=== PATIENT | male | born 1950 | race Caucasian/White ===

== ENCOUNTER 2024-01-25 13:00 | Inpatient (IN) | payer MEDICARE, OTHER, SELFPAY ==
[2024-01-25] VITALS (10 sets, daily range): BP systolic 126–172; BP diastolic 79–100; BMI 28.1
--- NOTE | 2024-01-25 10:56 | ED.GENMED ---
History of Present Illness
<Sailaja Guido PA-C - Last Filed: 01/25/24 15:11>
General
Chief Complaint: Alcohol Problem
Source: patient
Time Seen by Provider: 01/25/24 10:45
History of Present Illness
History of Present Illness:
73yoM with a history of alcoholism presenting via EMS for evaluation of hematemesis. Patient recently was released from a [facility] house in [place] about a month ago. He has been homeless since then and has been staying in hotels up until last
night. He started drinking again a few weeks ago. He states he has not been drinking as much the past few days because he has not been feeling well. He estimates that he drank 4 shots of vodka yesterday. He started having intermittent vomiting about
3 days ago. He noticed bright red blood mixed in with his vomit this morning and EMS was called. He denies any history of cirrhosis. No reported hematochezia or melena.
Past History
<Sailaja Guido PA-C - Last Filed: 01/25/24 15:11>
Past History
ED Past Medical History: Other (Foot drop, hernia in his lower abdomen, Fx Leg) and Other (Alcohol abuse)
ED Past Surgical History: Orthopedic (Right lower extremity orthopedic surgical procedure)
Social History
Tobacco: Smoker
Alcohol: Chronic alcoholic (Molt liquir and Vodka, As much as he can get)
Personal:
Living: homeless
Employment: Not employed
Family History
Family History: Other (Noncontributory)
Phy Exam
<Sailaja Guido PA-C - Last Filed: 01/25/24 15:11>
General Physical Exam
General Presentation: no apparent distress
General Skin: warm and dry
General Habitus: normal
General Mental: alert
Cardiovascular Exam
Cardiovascular Exam: tachycardia
Pulmonary Exam
Pulmonary Exam: lungs clear, no respiratory distress, no crackles and no wheezing
Gastrointestinal Exam
Gastrointestinal Exam: non tender, soft and non distended
Arnol Coma Scale
Eye Opening: Spontaneous
Verbal Response: Oriented
Motor Response: Obeys Commands
GCS Total Score: 15
Skin Exam
Skin Exam: normal color and warm/dry
Psychiatric Exam
Psychiatric Exam: normal mood/affect
Scores
<Sailaja Guido PA-C - Last Filed: 01/25/24 15:11>
Withdrawal Assessment of Alcohol
Withdrawal Assessment Completed?: Not applicable
Course
<Sailaja Guido PA-C - Last Filed: 01/25/24 15:11>
Orders/Labs/Results
Orders:
Orders
01/25/24 Breakfast
NPO
Allow oral meds: Yes
Allow clear liquids: No
01/25/24 10:55
Electrocardiogram (*1) Urgent
Reason for Study: Tachycardia
EKG- Treatment ONCE
01/25/24 10:59
Type+Screen Urgent
Alcohol Urgent
Complete Blood Count/With Diff Urgent
Comprehensive Metabolic Panel Urgent
Lipase Urgent
PTT Urgent
Prothrombin Time Urgent
Troponin I Urgent
01/25/24 11:08
0.9% Sodium Chloride 1000 ml [Nss] 1,000 ml IV BOLUS
01/25/24 11:14
ABO2 Routine
BBK Wristband Number:
Associate notified that ABO2 has been ordered: [id number]
Date: 01/25/24
Time: 11:07
Unloader Operator ID: [id number]
01/25/24 11:30
Pantoprazole [Protonix IV] 40 mg IV NOW STA
01/25/24 12:39
Urinalysis Reflex To Culture Routine
Date Specimen was Collected: 01/25/24
Time Specimen was Collected: 12:47
CR Chest - 2 Views Stat
Comment:
Reason For Exam: sob,cough
01/25/24 12:40
Admit/Transfer Patient As Directed
Co-Sign Provider:
Level of Care: Inpatient admission
Assign to:: IMU- Intermediate Care
Physician / Group: amirah
Diagnosis: hematemesis
Reason for Hospitalization: hematemesis
Expected length of stay greater than two midnights?: Yes
ELOS- Estimated Length of Stay in days: 3
I certify the patient meets the requirements for IP care: Yes
PRN Pain Medication Management As Directed
May give lesser potent ordered pain med per pt: Yes
preference::
Protocol:: Medication orders for pain may be administered in a
manner that supports deferring to patient preference
when the pt is:
- Requesting an ordered lesser potent pain medication.
Least to most potent pain medications are defined
as: acetaminophen < NSAID < tramadol < opioids
(morphine, oxycodone, hydromorphone).
- Requesting a lesser dose of the same medication IF
ORDERED.
- Requesting a less intrusive route of administration
if both routes are prescribed by the provider (PO <
IV).
01/25/24 12:42
Code Status As Directed
Resuscitation Status: Full Code
01/25/24 12:59
COVID-19 Antigen Stat
Source: Nasal Swab
Depakane Stat
01/25/24 13:00
Lactated Ringers [Lr] 1,000 ml IV 100 mls/hr
01/25/24 13:11
Octreotide Acetate [Sandostatin] 600 mcg 0.9% Sodium Chloride 500 ml [Nss] 500 ml IV Q12H
Pantoprazole 80 mg/100 ml Nss [Protonix] 80 mg in 100 ml IV Q10H
01/25/24 14:21
0.9% Sodium Chloride [Nss (Preservative Free)] See Protocol IV PRN PRN
FOLic ACID [Folvite] 1 mg 0.9% Sodium Chloride 50 ml [Nss] 50 ml IV DAILYPRN
Lorazepam [Ativan] 1 mg IV Q1HPRN PRN
Lorazepam [Ativan] 1 mg PO Q2HPRN PRN
Lorazepam [Ativan] 2 mg IV Q1HPRN PRN
01/25/24 14:21
Case Management Consult Once
Case Management Consult: Other
Comment: Substance abuse counseling
DIETARY CONSULT Routine
Reason for Consult: Nutrition support, possible refeeding guidelines
GASTROINTESTINAL CONSULT Routine
Consulting Provider: Jose Trujillo
Was physician already notified: Yes
B-Hydroxybutyrate Urgent
GGTP Urgent
Magnesium Urgent
Phosphorus Urgent
Urine Drug Abuse Screen Routine
Activity As Directed
Activity Level: As Tolerated
INT (Intravenous Needle Therapy) As Directed
Comment: Place 2 IV catheters of the largest bore possible until stable
MSAS SCORE As Directed
MSAS Score 0-4: Repeat MSAS every 2 hours until 0-4 for three consecutive assessments, then every 4 hours x 48
hours.
MSAS Score 5-7: For MILD withdrawl symptoms. Repeat MSAS and RASS every 2 hours
MSAS Score 8-11: For MODERATE withdrawal symptoms. Repeat MSAS and RASS every 1 hour. Consider ICU or IMU
level of care.
MSAS Score > 11: For SEVERE withdrawal symptoms. Repeat MSAS and RASS every 1 hour. Notify provider, consider
ICU level of care.
MSAS Additional Instructions: If no improvement or no decrease in score from severe to moderate within 12
hours, consult psychiatry
MSAS Notify Provider: Notify provider if patient requires more than 10 mg of Lorazepam in eight hour period.
Orthostatic Vital Signs As Directed
Orthostatic VS Frequency: Now
Comment: then every four hours for twenty-four hours
Quantify Hemopytsis As Directed
Venous Foot Pumps As Directed
Location: Bilateral feet
Vital Signs As Directed
Frequency: Per unit guidelines
DX Deep Vein Thrombosis Video Routine
01/25/24 20:00
Thiamine Injection 200 mg IV Q12
01/26/24 01:00
H&H Q8H
01/26/24 06:00
Basic Metabolic Panel IN AM
Complete Blood Count/No Diff IN AM
01/26/24 08:00
Amitriptyline [Elavil] 25 mg PO DAILY
Divalproex Extended Rel. 24 Hr [Depakote ER (24 Hr Release)] 1,000 mg PO DAILY
FOLic ACID [Folvite] 1 mg PO DAILY
01/26/24 09:00
H&H Q8H
01/27/24 06:00
Basic Metabolic Panel IN AM
Complete Blood Count/No Diff IN AM
01/28/24 06:00
Basic Metabolic Panel IN AM
Complete Blood Count/No Diff IN AM
01/28/24 20:00
Thiamine HCl [Vitamin B1] 100 mg PO BID
01/29/24 06:00
Basic Metabolic Panel IN AM
Complete Blood Count/No Diff IN AM
01/30/24 06:00
Complete Blood Count/No Diff IN AM
Abnormal Lab Results
01/25/24 01/25/24
10:59 12:59
WBC 12.5 H 10^3/uL
(4.8-10.8)
MCH 31.8 H pg
(27.0-31.0)
Abs Immat Gran (auto) 0.1 H 10^3/uL
(0-0.05)
Absolute Neuts (auto) 11.3 H 10^3/uL
(1.4-6.5)
Absolute Lymphs (auto) 0.5 L 10^3/uL
(1.2-3.4)
Immature Gran % 0.6 H %
(0-0.5)
Neutrophils % 90.8 H %
(42.2-75.2)
Lymphocytes % 4.2 L %
(20.5-51.1)
Chloride 92 L mmol/L
(98-107)
BUN 25 H mg/dl
(9-20)
Glucose 151 H mg/dl
(70-99)
Calcium 11.4 H mg/dl
(8.4-10.2)
Total Bilirubin 2.1 H mg/dl
(0.2-1.3)
Valproic Acid 14.8 L ug/ml
(50.0-120.0)
01/25/24 10:59
01/25/24 10:59
Vital Signs
Initial and Last Documented VS:
Initial Vital Signs
Temp Pulse Resp BP Pulse Ox
98 F 117 18 139/100 98
01/25/24 10:44 01/25/24 10:44 01/25/24 10:44 01/25/24 10:44 01/25/24 10:44
Last Documented Vital Signs
Temp Pulse Resp BP Pulse Ox
98 F 114 14 156/93 99
01/25/24 10:44 01/25/24 13:45 01/25/24 13:45 01/25/24 13:00 01/25/24 13:45
<Shashi Massey, DO - Last Filed: 01/25/24 11:24>
Orders/Labs/Results
Orders:
Orders
01/25/24 Breakfast
NPO
Allow oral meds: Yes
Allow clear liquids: No
01/25/24 10:55
Electrocardiogram (*1) Urgent
Reason for Study: Tachycardia
EKG- Treatment ONCE
01/25/24 10:59
Type+Screen Urgent
Alcohol Urgent
Complete Blood Count/With Diff Urgent
Comprehensive Metabolic Panel Urgent
Lipase Urgent
PTT Urgent
Prothrombin Time Urgent
Troponin I Urgent
01/25/24 11:08
0.9% Sodium Chloride 1000 ml [Nss] 1,000 ml IV BOLUS
01/25/24 11:14
ABO2 Routine
BBK Wristband Number:
Associate notified that ABO2 has been ordered: [id number]
Date: 01/25/24
Time: 11:07
Unloader Operator ID: [id number]
01/25/24 11:30
Pantoprazole [Protonix IV] 40 mg IV NOW STA
01/25/24 12:39
Urinalysis Reflex To Culture Routine
Date Specimen was Collected: 01/25/24
Time Specimen was Collected: 12:47
CR Chest - 2 Views Stat
Comment:
Reason For Exam: sob,cough
01/25/24 12:40
Admit/Transfer Patient As Directed
Co-Sign Provider:
Level of Care: Inpatient admission
Assign to:: IMU- Intermediate Care
Physician / Group: amirah
Diagnosis: hematemesis
Reason for Hospitalization: hematemesis
Expected length of stay greater than two midnights?: Yes
ELOS- Estimated Length of Stay in days: 3
I certify the patient meets the requirements for IP care: Yes
PRN Pain Medication Management As Directed
May give lesser potent ordered pain med per pt: Yes
preference::
Protocol:: Medication orders for pain may be administered in a
manner that supports deferring to patient preference
when the pt is:
- Requesting an ordered lesser potent pain medication.
Least to most potent pain medications are defined
as: acetaminophen < NSAID < tramadol < opioids
(morphine, oxycodone, hydromorphone).
- Requesting a lesser dose of the same medication IF
ORDERED.
- Requesting a less intrusive route of administration
if both routes are prescribed by the provider (PO <
IV).
01/25/24 12:42
Code Status As Directed
Resuscitation Status: Full Code
01/25/24 12:59
COVID-19 Antigen Stat
Source: Nasal Swab
Depakane Stat
01/25/24 13:00
Lactated Ringers [Lr] 1,000 ml IV 100 mls/hr
01/25/24 13:11
Octreotide Acetate [Sandostatin] 600 mcg 0.9% Sodium Chloride 500 ml [Nss] 500 ml IV Q12H
Pantoprazole 80 mg/100 ml Nss [Protonix] 80 mg in 100 ml IV Q10H
01/25/24 14:21
0.9% Sodium Chloride [Nss (Preservative Free)] See Protocol IV PRN PRN
FOLic ACID [Folvite] 1 mg 0.9% Sodium Chloride 50 ml [Nss] 50 ml IV DAILYPRN
Lorazepam [Ativan] 1 mg IV Q1HPRN PRN
Lorazepam [Ativan] 1 mg PO Q2HPRN PRN
Lorazepam [Ativan] 2 mg IV Q1HPRN PRN
01/25/24 14:21
Case Management Consult Once
Case Management Consult: Other
Comment: Substance abuse counseling
DIETARY CONSULT Routine
Reason for Consult: Nutrition support, possible refeeding guidelines
GASTROINTESTINAL CONSULT Routine
Consulting Provider: Jose Trujillo
Was physician already notified: Yes
B-Hydroxybutyrate Urgent
GGTP Urgent
Magnesium Urgent
Phosphorus Urgent
Urine Drug Abuse Screen Routine
Activity As Directed
Activity Level: As Tolerated
INT (Intravenous Needle Therapy) As Directed
Comment: Place 2 IV catheters of the largest bore possible until stable
MSAS SCORE As Directed
MSAS Score 0-4: Repeat MSAS every 2 hours until 0-4 for three consecutive assessments, then every 4 hours x 48
hours.
MSAS Score 5-7: For MILD withdrawl symptoms. Repeat MSAS and RASS every 2 hours
MSAS Score 8-11: For MODERATE withdrawal symptoms. Repeat MSAS and RASS every 1 hour. Consider ICU or IMU
level of care.
MSAS Score > 11: For SEVERE withdrawal symptoms. Repeat MSAS and RASS every 1 hour. Notify provider, consider
ICU level of care.
MSAS Additional Instructions: If no improvement or no decrease in score from severe to moderate within 12
hours, consult psychiatry
MSAS Notify Provider: Notify provider if patient requires more than 10 mg of Lorazepam in eight hour period.
Orthostatic Vital Signs As Directed
Orthostatic VS Frequency: Now
Comment: then every four hours for twenty-four hours
Quantify Hemopytsis As Directed
Venous Foot Pumps As Directed
Location: Bilateral feet
Vital Signs As Directed
Frequency: Per unit guidelines
DX Deep Vein Thrombosis Video Routine
01/25/24 20:00
Thiamine Injection 200 mg IV Q12
01/26/24 01:00
H&H Q8H
01/26/24 06:00
Basic Metabolic Panel IN AM
Complete Blood Count/No Diff IN AM
01/26/24 08:00
Amitriptyline [Elavil] 25 mg PO DAILY
Divalproex Extended Rel. 24 Hr [Depakote ER (24 Hr Release)] 1,000 mg PO DAILY
FOLic ACID [Folvite] 1 mg PO DAILY
01/26/24 09:00
H&H Q8H
01/27/24 06:00
Basic Metabolic Panel IN AM
Complete Blood Count/No Diff IN AM
01/28/24 06:00
Basic Metabolic Panel IN AM
Complete Blood Count/No Diff IN AM
01/28/24 20:00
Thiamine HCl [Vitamin B1] 100 mg PO BID
01/29/24 06:00
Basic Metabolic Panel IN AM
Complete Blood Count/No Diff IN AM
01/30/24 06:00
Complete Blood Count/No Diff IN AM
Abnormal Lab Results
01/25/24 01/25/24
10:59 12:59
WBC 12.5 H 10^3/uL
(4.8-10.8)
MCH 31.8 H pg
(27.0-31.0)
Abs Immat Gran (auto) 0.1 H 10^3/uL
(0-0.05)
Absolute Neuts (auto) 11.3 H 10^3/uL
(1.4-6.5)
Absolute Lymphs (auto) 0.5 L 10^3/uL
(1.2-3.4)
Immature Gran % 0.6 H %
(0-0.5)
Neutrophils % 90.8 H %
(42.2-75.2)
Lymphocytes % 4.2 L %
(20.5-51.1)
Chloride 92 L mmol/L
(98-107)
BUN 25 H mg/dl
(9-20)
Glucose 151 H mg/dl
(70-99)
Calcium 11.4 H mg/dl
(8.4-10.2)
Total Bilirubin 2.1 H mg/dl
(0.2-1.3)
Valproic Acid 14.8 L ug/ml
(50.0-120.0)
01/25/24 10:59
01/25/24 10:59
Vital Signs
Initial and Last Documented VS:
Initial Vital Signs
Temp Pulse Resp BP Pulse Ox
98 F 117 18 139/100 98
01/25/24 10:44 01/25/24 10:44 01/25/24 10:44 01/25/24 10:44 01/25/24 10:44
Last Documented Vital Signs
Temp Pulse Resp BP Pulse Ox
98 F 114 14 156/93 99
01/25/24 10:44 01/25/24 13:45 01/25/24 13:45 01/25/24 13:00 01/25/24 13:45
<Sailaja Guido PA-C - Last Filed: 01/25/24 15:11>
MDM/Problems Addressed
Differential Diagnosis Includes:
73yoM here with hematemesis. Hx of alcoholism. Vomiting intermittently x several days. Noticed bright red blood in vomitus today and called EMS. No prior hx of cirrhosis. Patient is tachycardic in the 120s on initial exam. Blood pressure stable.
He is well-appearing in no acute distress. Exam reassuring. Differential diagnosis includes but is not limited to: Gastritis, PUD, Kendra-Tsang tear, variceal bleed, anemia
Initial ED plan: Check abdominal labs, coags, type and screen, troponin/EKG. Ibuprofen aches and fluid bolus.
<Sailaja Guido PA-C - Last Filed: 01/25/24 15:11>
*EKG
Interpreted by ED Provider?: Yes
EKG Intrepretation Date: 01/25/24
Heart Rate: 113
Rate: tachycardiac
Rhythm: sinus
[place]: normal axis
Interval: normal interval
QRS Pattern: normal QRS
Ischemia: no ischemia
*Critical Care Note
Total Time (30-74mins, 75-104mins- exclusive of procedures): Not Applicable
<Sailaja Guido PA-C - Last Filed: 01/25/24 15:11>
Update Note
Update Note:
Hemoglobin 15.4. BUN mildly elevated at 25. Creatinine normal. Remainder of labs unremarkable. Patient is currently homeless and is not a safe discharge. He was admitted for further evaluation
ED Attending Note
<Sailaja Guido PA-C - Last Filed: 01/25/24 15:11>
-
Portions of this chart may have been created with voice recognition software.� Occasional wrong word or��sound alike� substitutions may have occurred due to the inherent limitations of voice recognition software.
<Shashi Massey, DO - Last Filed: 01/25/24 11:24>
ED Attending Note
Patient seen and examined by attending physician: Yes
I performed the substantive portion of visit, reviewed & personally made and approve the management plan that is documented in note by myself or SLOAN.: Yes
ED Attending Note:
Seen with PA examined independently 73-year-old male alcoholic has been in rehab currently homeless living in hotels, last drank last evening, called EMS because he was nauseous vomited blood, drinks fifth of vodka every 2 days 4 beers a day, here
cooperative, slightly tremulous, tachycardic, tells me is not really interested in rehab at this time states he feels dehydrated and malnourished suspect he may not have anywhere to go,
Discharge Plan
Departure
Patient Disposition: Admit
Date of Disposition: 01/25/24
Time of Disposition: 12:06
Presentation/result/management discussed w/ accepting MD/DO: Hospitalist
Discharge Problem:
Hematemesis
Interventions
Interventions:
*Risk Screen - Suicide Last Done: 01/25/24 10:44
*General Assessment Last Done: 01/25/24 10:44
*Neglect/Abuse Screening Last Done: 01/25/24 10:44
*Nursing Disposition Last Done: 01/25/24 14:32
ED- Neurological Assessment Last Done: 01/25/24 10:56
ED-Psychological Assessment Last Done: 01/25/24 10:56
Discharge Date and Time
Discharge Date/Time: 01/25/24 14:32
[2024-01-25 11:10] LABS: % Basophils 0.2 % (0-2); % Immature Granulocytes 0.6 % (0-0.5); % Lymphocytes 4.2 % (20.5-51.1); % Monocytes 4.2 % (1.7-9.3); % Neutrophils 90.8 % (42.2-75.2); Absolute Immature Granulocytes 0.1 10^3/uL (0-0.05); Absolute Lymphocytes 0.5 10^3/uL (1.2-3.4); Absolute Monocytes 0.5 10^3/uL (0.1-0.6); Absolute Neutrophils 11.3 10^3/uL (1.4-6.5); Hematocrit 42.6 % (39.0-52.0); Hemoglobin 15.4 g/dL (13.0-18.0); Mean Corp Hgb Conc. 36.2 g/dL (33.0-37.0); Mean Corpuscular Hgb 31.8 pg (27.0-31.0); Mean Corpuscular Volume 87.8 fL (80.0-94.0); Mean Platelet Volume 10.4 fL (7.4-10.4); Nucleated Red Blood Cells % 0 % (-); Platelet Count 231 10^3/uL (130-400); Red Blood Cell Count 4.85 10^6/uL (4.70-6.10); Red Cell Dist. Width 13.2 % (11.5-14.5); White Blood Cell Count 12.5 10^3/uL (4.8-10.8)
[2024-01-25] MEDS: NSS 1000 IV (11:13)
[2024-01-25 11:17] LABS: INR 0.96; PT 12.6 Sec (11.4-14.6)
[2024-01-25 11:18] LABS: APTT 25.9 Sec (23.4-35.0)
[2024-01-25 11:25] LABS: ALT (SGPT) 40 U/L (0-50); AST (SGOT) 52 U/L (17-59); Alkaline Phosphatase 91 U/L (38-126); Blood Urea Nitrogen 25 mg/dl (9-20); Calcium 11.4 mg/dl (8.4-10.2); Carbon Dioxide 27 mmol/L (22-30); Chloride 92 mmol/L (98-107); Estimated Creatinine Clearance 68 ml/min; Glucose 151 mg/dl (70-99); Lipase 225 U/L (23-300); Potassium 3.7 mmol/L (3.5-5.1); Sodium 140 mmol/L (135-145); Total Bilirubin 2.1 mg/dl (0.2-1.3); Total Protein 8.2 g/dl (6.3-8.2); eGFR > 60.00
[2024-01-25 11:28] LABS: Alcohol None Detected
[2024-01-25] MEDS: PROTONIX IV 40 MG IV ×2 (11:31→15:16)
[2024-01-25 11:37] LABS: Troponin I < 0.012 ng/ml
--- NOTE | 2024-01-25 12:08 | HPS.HSE ---
Addendum entered and electronically signed by Jose Ibrahim MD 01/25/24 13:20:
I saw and examined the patient.
The BILINGUAL SECRETARY or PA's note was reviewed and I agree with the note.
Comment: 73-year-old male with past medical history of alcohol use with abuse, mood disorder came to the hospital with hematemesis. Per patient he started this morning with couple episodes. Denies any chest pain, shortness of breath. Per patient
he did had history of similar episode at [place] last year. He does not follow-up with any physician and is homeless. He is also noncompliant with medications. 40 IV Protonix only given in ED. Give another dose of 40 IV and start PPI drip.
Start octreotide drip. Consult GI. NPO. Start lactated Ringer's. Msas protocol for withdrawal. Admit to IMU given active symptoms and tachycardia, tachypnea. Serial H/H.
General: Well Developed, Well Nourished and No Apparent Distress
HEENT: NormoCephalic, Moist mucous membranes and Atraumatic
Respiratory: Clear
Cardiac: S1/S2 and Regular Rhythm; No Murmur or Rub
GI: Soft, Non Tender, Non Distended and Normal Bowel Sounds; No Organomegaly
Rectal: Deferred by Provider
Musculoskeletal: No Clubbing, No Cyanosis and No Edema
Skin: No Rash
Neuro: AO x 3 and Nonfocal/grossly intact
Psych: Calm
I spent a total of 77 minutes with the patient or on the floor. More than 50% of this time involved counseling and coordination of care.
Original Note:
Family Physician
-
Family Physician: NOT KNOW UNKNOWN - PT DOES
Chief Complaint
-
Hematemesis
History of Present Illness
73-year-old with past medical history for alcohol abuse, mood disorder presented to assist with 3 days of vomiting. For past few days it was the food and water where he was drinking. Today he noticed blood in his vomit. Patient complained of
generalized discomfort. Denied any rectal bleed, black stool black stool. Patient denied dizziness or syncopal episode. He is complaining of headache and generalized achiness. For past few days he has nonproductive cough. Stated short of
breath. Denied fever or chills or chest pain. Patient stated very weak. Denied dysuria hematuria.
Patient recently was released from a [facility] house in [place] about a month ago. He has been homeless since then and has been staying in hotels up until last night.He started drinking again a few weeks ago. He states he has not been drinking as
much the past few days because he has not been feeling well. He estimates that he drank 4 shots of vodka yesterday.
On arrival patient is tachycardic. Blood pressure elevated. Patient received a dose Protonix and normal saline 1 L in ER. Admitted for further management
Patient not compliant with his medications
Medical History
Past Medical History
Past Medical History: Reports Other
Additional Past Medical History:
Mood disorder
Past Surgical History: Reports Other
Additional Past Surgical History:
[place] tooth extraction
Hernia repair
Right femur surgery
Social History
Tobacco: Smoker (5 to 10 cigarettes daily)
Alcohol: Daily (Wall to the core as well as vodka)
Drug: None
Personal: Single
Living: Homeless
Family History
Family History: Not pertinent
Allergies / Home Medications
Allergies reflects when Allergies were last updated in [facility].
Home Medications with original date entered in [facility]
Allergy/Medication List:
Allergies
Allergy/AdvReac Type Severity Reaction Status Date / Time
No Known Allergies Allergy Verified 04/03/20 20:56
Home Medications
amitriptyline 25 mg tablet 25 mg PO DAILY 01/25/24
divalproex 500 mg tablet,extended release 24 hr 1,000 mg PO DAILY 01/25/24
folic acid 1 mg tablet 1 mg PO DAILY 01/25/24
pantoprazole 40 mg tablet,delayed release 40 mg PO DAILY 01/25/24
therapeutic multivitamin 1 tab PO DAILY 01/25/24
thiamine HCl (vitamin B1) 100 mg tablet 100 mg PO DAILY 01/25/24
Review of Systems
-
Constitutional: Reports No Symptoms
EENT: Reports No Symptoms
Respiratory: Reports Cough and Trouble Breathing
Cardiac: Reports No Symptoms
Abdomen/GI: Reports No Symptoms, Abdominal Pain and Vomiting (Blood)
: Reports No Symptoms
Musculoskeletal: Reports No Symptoms
Skin: Reports No Symptoms
Neurological: Reports No Symptoms
Endocrine: Reports No Symptoms
Hematologic/Lymphatic: Reports No Symptoms
Psych: Reports No Symptoms
Physical Exam
Vital Signs
Vital Signs
Temp Pulse Resp BP Pulse Ox
98 F 103 20 142/95 96
01/25/24 10:44 01/25/24 11:45 01/25/24 11:45 01/25/24 11:00 01/25/24 11:45
Physical Exam
General: Well Developed, Well Nourished and No Apparent Distress
HEENT: NormoCephalic, Moist mucous membranes and Atraumatic
Respiratory: Clear
Cardiac: S1/S2 and Regular Rhythm; No Murmur or Rub
GI: Soft, Non Tender, Non Distended and Normal Bowel Sounds; No Organomegaly
Rectal: Deferred by Provider
Musculoskeletal: No Clubbing, No Cyanosis and No Edema
Skin: No Rash
Neuro: AO x 3 and Nonfocal/grossly intact
Psych: Calm
Laboratory Results
-
01/25/24 10:59
01/25/24 10:59
Laboratory Results
PT 12.6 Sec (11.4-14.6) 01/25/24 10:59
INR 0.96 01/25/24 10:59
APTT 25.9 Sec (23.4-35.0) 01/25/24 10:59
Total Bilirubin 2.1 mg/dl (0.2-1.3) H 01/25/24 10:59
AST 52 U/L (17-59) 01/25/24 10:59
ALT 40 U/L (0-50) 01/25/24 10:59
Alkaline Phosphatase 91 U/L (38-126) 01/25/24 10:59
Troponin I < 0.012 ng/ml 01/25/24 10:59
Lipase 225 U/L (23-300) 01/25/24 10:59
Data Reviewed
-
Lab Data: Labs Reviewed by me
Impression/Plan
-
# Hematemesis likely Upper GI bleed
#possible hxt of Varices
-Hemoglobin stable at 15.4
-Continue to trend hemoglobin
-Keep patient n.p.o.
-IV Protonix and octreotide drip
-trend hemoglobin
-GI consulted
# Alcohol abuse
-Alcohol protocol
-Monitor emesis score
# Leukocytosis likely stress reaction
-WBC 12.5
-Obtain urinalysis
-Obtain chest x-ray
# Cough/short of breath generalized achiness
-Will obtain COVID
-Obtain chest x-ray
-Oxygenating very well on room air
-continue to monitor
# Hypercalcemia likely dehydration
-Calcium 11.4
-Continue fluids
# Tachycardia likely dehydration/? withdrawal
-Fluids continued
-Monitor heart rate
-EKG with sinus tachycardia
# History of mood disorder
-Obtain Depakote level
-Depakote continued
-Amitriptyline continued
# DVT prophylaxis
-scd
# CODE STATUS
-Full code
--- NOTE | 2024-01-25 13:20 | W.PN.UPDATE ---
Update Note
Progress Note Update
For billing purposes only
[2024-01-25 13:28] LABS: COVID-19 Antigen Negative (Negative)
[2024-01-25 13:31] LABS: Depakane 14.8 ug/ml (50.0-120.0)
[2024-01-25] MEDS: PROTONIX 100 IV (13:31)
[2024-01-25] MEDS: LR 1000 IV (13:31)
[2024-01-25] MEDS: SANDOSTATIN 500.6 MCG IV (13:36)
--- NOTE | 2024-01-25 14:49 | CON.GI ---
Consultation
-
Date/Time Consultation Requested: 01/25/2024
Date/Time Consultation Performed: 01/25/2024
Performing Provider: Jose Trujillo
Reason for Consultation: hematemesis
Medical History
Chief Complaint / HPI
Chief Complaint: hematemesis
History of Present Illness:
Patient is a 73-year-old male with history of alcohol abuse who presents with hematemesis. He started vomiting last night which was initially nonbloody. He was vomiting mostly food and beer. He had multiple episodes throughout the night. He then
had few more vomiting this morning which showed some maroon-colored blood. Denies noemi hematemesis or large hematemesis. He denies abdominal pain or NSAID use. He has similar presentation and had EGD done at [facility] about a year or 2
ago. He is homeless and lives in a [facility] house and does not have a continued medical care.
Past Medical History
Past Medical History: Other
Past Surgical History: Other
Social History
Tobacco: Smoker
Alcohol: Daily
Family History
Family History: Reviewed & Not Pertinent
Allergies / Home Medications
Allergy/AdvReac Type Severity Reaction Status Date / Time
No Known Allergies Allergy Verified 04/03/20 20:56
�Medication �Instructions �Recorded
amitriptyline 25 mg tablet 25 mg PO DAILY 01/25/24
divalproex 500 mg tablet,extended 1,000 mg PO DAILY 01/25/24
release 24 hr
folic acid 1 mg tablet 1 mg PO DAILY 01/25/24
pantoprazole 40 mg tablet,delayed 40 mg PO DAILY 01/25/24
release
therapeutic multivitamin 1 tab PO DAILY 01/25/24
thiamine HCl (vitamin B1) 100 mg 100 mg PO DAILY 01/25/24
tablet
Review of Systems
Vital Signs
Temp Pulse Resp BP Pulse Ox
98 F 114 14 156/93 99
01/25/24 10:44 01/25/24 13:45 01/25/24 13:45 01/25/24 13:00 01/25/24 13:45
Physical Exam
Exam
General: Well Developed and Well Nourished
HEENT: Normocephalic
Respiratory: Clear
Cardiac: S1/S2
GI: Soft, Non Tender and Non Distended
Results
WBC 12.5 10^3/uL (4.8-10.8) H 01/25/24 10:59
Hgb 15.4 g/dL (13.0-18.0) 01/25/24 10:59
Hct 42.6 % (39.0-52.0) 01/25/24 10:59
MCV 87.8 fL (80.0-94.0) 01/25/24 10:59
Plt Count 231 10^3/uL (130-400) 01/25/24 10:59
Absolute Neuts (auto) 11.3 10^3/uL (1.4-6.5) H 01/25/24 10:59
PT 12.6 Sec (11.4-14.6) 01/25/24 10:59
INR 0.96 01/25/24 10:59
APTT 25.9 Sec (23.4-35.0) 01/25/24 10:59
Sodium 140 mmol/L (135-145) 01/25/24 10:59
Potassium 3.7 mmol/L (3.5-5.1) 01/25/24 10:59
Chloride 92 mmol/L (98-107) L 01/25/24 10:59
Carbon Dioxide 27 mmol/L (22-30) 01/25/24 10:59
BUN 25 mg/dl (9-20) H 01/25/24 10:59
Creatinine 1.0 mg/dL (0.7-1.3) 01/25/24 10:59
Calcium 11.4 mg/dl (8.4-10.2) H 08/31/24 10:59
Total Bilirubin 2.1 mg/dl (0.2-1.3) H 01/25/24 10:59
AST 52 U/L (17-59) 01/25/24 10:59
ALT 40 U/L (0-50) 01/25/24 10:59
Alkaline Phosphatase 91 U/L (38-126) 01/25/24 10:59
Lipase 225 U/L (23-300) 01/25/24 10:59
Diagnostic Image Results:
Prior GI Procedures:
EGD:
Colonoscopy:
Assessment / Plan
-
73-year-old male with history of alcohol abuse who presents with hematemesis.
Impression / Rec:
1. Hematemesis -he started vomiting mostly food and beer last night. He had multiple episodes of nonbloody vomiting. Then this morning he had few episodes of small amount of maroon-colored blood noted in his vomit. Denies noemi hematemesis. Has
history of alcohol abuse and had similar episode which required endoscopic evaluation at [facility] 1 to 2 years ago he is homeless and lives in a [facility] house and does not have a continued medical care. His last BM was 2 days ago and denies melena
or blood in stool. Denies abdominal pain or NSAID use. Given his history, I suspect Kendra-Tsang tear. However he has significant alcohol history, variceal hemorrhage cannot be excluded although less likely. Agree with PPI and octreotide
infusion. Keep n.p.o. for now. Monitor Hgb, plan for Endo eval, timing to be determined.
Total Time Spent with Patient (in minutes): 55
-
-
Thank you for consultation and allowing me to participate in the patient's care. Please call the visual education director GI physician during the after hours with any questions or concerns.
[2024-01-25] MEDS: NSS (PRESERVATIVE FREE) 10 ML IV (15:16)
[2024-01-25] MEDS: ATIVAN 1 MG PO (15:18)
[2024-01-25 16:58] LABS: Hematocrit 37.2 % (39.0-52.0); Hemoglobin 13.5 g/dL (13.0-18.0)
[2024-01-25 17:28] LABS: GGTP 61 U/L (15-73); Magnesium 1.8 mg/dl (1.6-2.3); Phosphorus 4.5 mg/dl (2.5-4.5)
[2024-01-25 17:35] LABS: B-Hydroxybutyrate 4.04 mmol/L (0.02-0.27)
--- NOTE | 2024-01-25 18:12 | PTCARENOTE ---
Pt arrived to floor from ED via stretcher. Stood and pivoted to unit bed. Protonix gtt and Sandostatin gtt infusing. MSAS 6 for tachycardia, tremors, and reported nausea. PRN Ativan 1mg PO provided per protocol. SaO2 98% on room air. Clear lungs
sounds. No episode of emesis observed. Pt NPO status. Pt has not voided; unable to urine sample for lab. LR infusing @ 100 ml/hr.
--- NOTE | 2024-01-25 19:00 | PTCARENOTE ---
previous shift vital signs verified- can only verify accuracy of vitals starting at 1900 for this shift.
[2024-01-25] MEDS: THIAMINE INJECTION 200 MG IV (21:00)
--- NOTE | 2024-01-25 21:00 | PTCARENOTE ---
pedicurist, pt drowsy but arousable to verbal, oriented x 3, SR-ST HR 90s-low 100s. B/L IV WNL- Protonix, Octreotide, IVF infusing per work list. RA Sat 97%. POC discussed, call rdz with pt.
[2024-01-25 22:59] LABS: Hematocrit 36.1 % (39.0-52.0)
[2024-01-26] VITALS (23 sets, daily range): BP systolic 123–164; BP diastolic 72–120; PULSE 82–96; O2SAT 99; BMI 28.6
[2024-01-26] MEDS: SANDOSTATIN 500.6 MCG IV ×2 (02:22→14:32)
[2024-01-26] MEDS: PROTONIX 100 IV ×2 (02:22→12:25)
[2024-01-26] MEDS: LR 1000 IV ×3 (02:22→22:25)
[2024-01-26 03:55] LABS: Hematocrit 35.5 % (39.0-52.0); Hemoglobin 12.8 g/dL (13.0-18.0); Mean Corp Hgb Conc. 36.1 g/dL (33.0-37.0); Mean Corpuscular Hgb 32.2 pg (27.0-31.0); Mean Corpuscular Volume 89.2 fL (80.0-94.0); Mean Platelet Volume 9.8 fL (7.4-10.4); Platelet Count 165 10^3/uL (130-400); Red Blood Cell Count 3.98 10^6/uL (4.70-6.10); Red Cell Dist. Width 13.3 % (11.5-14.5); White Blood Cell Count 9.3 10^3/uL (4.8-10.8)
[2024-01-26 04:07] LABS: Urine Albumin Trace (Neg - Trace); Urine Bilirubin 1+ (Negative); Urine Character Slightly Cloudy (Clear); Urine Color Amber; Urine Glucose Negative (Negative); Urine Ketone 3+ (Negative); Urine Leukocyte Negative (Negative); Urine Nitrite Negative (Negative); Urine Occult Blood Negative (Negative); Urine Specific Gravity 1.015 (<1.030); Urine Urobilinogen 2+ (Neg - 1+); Urine pH 6.5 (5.0-9.0)
[2024-01-26 04:21] LABS: Benzodiazepines Positive (Negative)
[2024-01-26 04:22] LABS: Amphetamines Negative (Negative); Barbiturates Negative (Negative); Buprenorphine Negative (Negative); Cocaine Negative (Negative); Marijuana Negative (Negative); Methadone Negative (Negative); Methamphetamines Negative (Negative); Opiates Negative (Negative); Phencyclidine Negative (Negative); Tricyclic Antidepressants Positive (Negative)
[2024-01-26 04:25] LABS: Blood Urea Nitrogen 21 mg/dl (9-20); Carbon Dioxide 28 mmol/L (22-30); Chloride 102 mmol/L (98-107); Estimated Creatinine Clearance 85 ml/min; Glucose 144 mg/dl (70-99); Iron 82 ug/dl (49-181); Percent Saturation 35 % (20-50); Potassium 3.5 mmol/L (3.5-5.1); Sodium 140 mmol/L (135-145); Total Iron Binding Capacity 232 ug/dl (261-462); eGFR > 60.00
[2024-01-26 04:39] LABS: Fentanyl, Urine Negative (Negative)
[2024-01-26 05:20] LABS: Folate > 20.0 ng/ml (2.76-20); Vitamin B12 462 pg/ml (239-931)
[2024-01-26] MEDS: THIAMINE INJECTION 200 MG IV ×2 (08:26→20:25)
[2024-01-26] MEDS: DEPAKOTE ER (24 HR RELEASE) 1000 MG PO (08:26)
[2024-01-26] MEDS: ATIVAN 1 MG PO (08:26)
[2024-01-26] MEDS: ELAVIL 25 MG PO (08:26)
[2024-01-26] MEDS: FOLVITE 1 MG PO (08:26)
--- NOTE | 2024-01-26 09:06 | CM ---
CM met briefly with Vincent at bedside. He was somnolent and unable to converse at the time of my visit. IV fluids running, no PO intake at this time.
Prior notes indicate he has been in a [facility] house in the past; no current address or phone number available.
CM will follow to discuss [facility]ARES when pt is able to discuss.
--- NOTE | 2024-01-26 09:37 | W.PN.HOSP.TC ---
Today's Communication/Plan
-
follow Hgb
Assessment / Plan
Assessment / Plan
73yo M, essentially homeless with GERD, alcohol dependency came with vomiting with the blood for 1 day.
A/P:
#Acute GIB, concern for variceal bleed
PPI drip
Octreotide
NPO until GI allows food (might need EGD)
GI consult
Two large bore IV, serial Hgb, transfuse as needed
#Alcohol abuse
Thiamina/FOlate
MSAS protocol
Watch for DT
#Modd d/o
cont home meds
#Bilirubinemia
without abd pain
follow LFT, DIrect bili, LDH
US RUQ
check Lipase
DVT ppx SCDs
Full code
I have spent at least 37min reviewing chart, test results, communication with consultants and direct patient care
Anticipated Discharge: 24 - 48 hours
Subjective/Interval History
-
Date of Service: January 26, 2024
Objective Data
-
Labs:
Laboratory Results
01/25/24 01/26/24 01/26/24
22:49 03:46 03:46
WBC 9.3
Hgb 13.0 Cancelled 12.8 L
Hct 36.1 L Cancelled
Plt Count
Sodium
Potassium
Chloride
Carbon Dioxide
BUN
Creatinine
Glucose
Calcium
01/26/24 01/26/24 01/26/24
03:46 09:00 11:00
WBC
Hgb Pending Pending
Hct 35.5 L Pending Pending
Plt Count 165 D
Sodium 140
Potassium 3.5
Chloride 102
Carbon Dioxide 28
BUN 21 H
Creatinine 0.8
Glucose 144 H
Calcium 9.0 D
Vital Signs:
Vital Signs
Temp Pulse Resp BP Pulse Ox
98.3 F 88 18 133/72 99
01/26/24 07:54 01/26/24 06:00 01/26/24 06:00 01/26/24 06:00 01/26/24 08:31
I&O
01/25/24 01/26/24 01/27/24
06:59 06:59 06:59
Intake Total 1834 / 1834 600 / 600
Output Total 600 / 600
Balance 1234 / 1234 600 / 600
Review of Systems
-
History Source: Patient
All other systems: Reviewed and negative
Physical Exam
-
General: No Apparent Distress
HEENT: Normocephalic
Respiratory: Clear to Auscultation
Cardiac: Regular Rhythm and Tachycardic
GI: Soft, Nontender and Nondistended
Musculoskeletal: No Clubbing, No Cyanosis and No Edema
Psych: Calm
[2024-01-26 10:33] LABS: Lipase 372 U/L (23-300)
[2024-01-26 10:43] LABS: Hematocrit 34.9 % (39.0-52.0); Hemoglobin 12.4 g/dL (13.0-18.0)
[2024-01-26 14:29] LABS: ALT (SGPT) 31 U/L (0-50); AST (SGOT) 43 U/L (17-59); Albumin 3.5 g/dl (3.5-5.0); Alkaline Phosphatase 70 U/L (38-126); Direct Bilirubin 0.5 mg/dl (0.0-0.4); LDH 161 U/L (120-246); Total Bilirubin 1.6 mg/dl (0.2-1.3); Total Protein 6.2 g/dl (6.3-8.2)
[2024-01-26] MEDS: OMNIPAQUE 50 ML PO (14:31)
--- NOTE | 2024-01-26 14:59 | W.PN.GI.CBS2 ---
Today's Communication / Plan
-
CLD, will d/c octreotide infusion, convert PPI infusion to IV BID
Assessment / Plan
-
73-year-old male with history of alcohol abuse who presents with hematemesis.
Impression / Rec:
1. Hematemesis -he started vomiting mostly food and beer last night. He had multiple episodes of nonbloody vomiting. Then this morning he had few episodes of small amount of maroon-colored blood noted in his vomit. Denies noemi hematemesis. Has
history of alcohol abuse and had similar episode which required endoscopic evaluation at [facility] 1 to 2 years ago he is homeless and lives in a shelter house and does not have a continued medical care. His last BM was 2 days ago and denies melena
or blood in stool. Denies abdominal pain or NSAID use. Given his history, I suspect Kendra-Tsang tear. However he has significant alcohol history, variceal hemorrhage cannot be excluded although less likely. Agree with PPI and octreotide
infusion. Keep n.p.o. for now. Monitor Hgb, plan for Endo eval, timing to be determined.
No events overnight, no further hematemesis or vomiting. Hgb remains stable. I suspect he likely had Kendra-Tsang tear rather than variceal hemorrhage. Will discontinue octreotide and convert Protonix infusion to IV twice daily. Can have CLD.
Plan for EGD on 01/27. Can be downgraded to regular floor.
Total Time Spent with Patient (in minutes): 35
Subjective
Subjective
Date of Service: January 26, 2024
Feels well, denies vomiting
Objective
Data Reviewed
Laboratory Data:
Laboratory Results
01/26/24 10:32
01/26/24 03:46
Laboratory Results
PT 12.6 Sec (11.4-14.6) 01/25/24 10:59
INR 0.96 01/25/24 10:59
APTT 25.9 Sec (23.4-35.0) 01/25/24 10:59
Phosphorus 4.5 mg/dl (2.5-4.5) 01/25/24 16:14
Magnesium 1.8 mg/dl (1.6-2.3) 01/25/24 16:14
Total Bilirubin 1.6 mg/dl (0.2-1.3) H 01/26/24 03:46
Total Bilirubin Cancelled 01/26/24 03:46
AST 43 U/L (17-59) 01/26/24 03:46
AST Cancelled 01/26/24 03:46
ALT 31 U/L (0-50) 01/26/24 03:46
ALT Cancelled 01/26/24 03:46
Alkaline Phosphatase 70 U/L (38-126) 01/26/24 03:46
Alkaline Phosphatase Cancelled 01/26/24 03:46
Lipase 372 U/L (23-300) H 01/26/24 03:46
Vital Signs and I&O:
Vital Signs
Temp Pulse Resp BP Pulse Ox
98.3 F 88 18 133/72 99
01/26/24 11:54 01/26/24 06:00 01/26/24 06:00 01/26/24 06:00 01/26/24 08:31
I&O
01/25/24 01/26/24 01/27/24
06:59 06:59 06:59
Intake Total 1834 / 1834 600 / 600
Output Total 600 / 600
Balance 1234 / 1234 600 / 600
--- NOTE | 2024-01-26 16:12 | PTCARENOTE ---
Pt received in bed @ 0700. AAOx3. MSAS of 5 for tachycardia, tremors, and reported nausea. PRN Ativan 1mg PO administered per MSAS protocol. MSAS remained < 4 after on follow up assessments. SaO2 98% on room air. Abdominal ultrasound completed.
Octreotide and Protonix gtt d/c'd. Pt advanced to clear liquid diet. Denying nausea. Drinking CT contrast for abdominal CT.
[2024-01-26] MEDS: PROTONIX IV 40 MG IV (20:24)
[2024-01-26] MEDS: NSS (PRESERVATIVE FREE) 10 ML IV (20:25)
[2024-01-27] VITALS (10 sets, daily range): BP systolic 119–162; BP diastolic 68–98; BMI 28.5
[2024-01-27 04:41] LABS: % Basophils 0.4 % (0-2); % Eosinophils 0.9 % (0-6); % Immature Granulocytes 0.4 % (0-0.5); % Lymphocytes 17.1 % (20.5-51.1); % Monocytes 8.4 % (1.7-9.3); % Neutrophils 72.8 % (42.2-75.2); Absolute Eosinophils 0.1 10^3/uL (0-0.7); Absolute Lymphocytes 0.9 10^3/uL (1.2-3.4); Absolute Monocytes 0.5 10^3/uL (0.1-0.6); Absolute Neutrophils 3.9 10^3/uL (1.4-6.5); Hematocrit 33.5 % (39.0-52.0); Hemoglobin 12.1 g/dL (13.0-18.0); Mean Corp Hgb Conc. 36.1 g/dL (33.0-37.0); Mean Corpuscular Hgb 33.1 pg (27.0-31.0); Mean Corpuscular Volume 91.5 fL (80.0-94.0); Mean Platelet Volume 10.1 fL (7.4-10.4); Nucleated Red Blood Cells % 0 % (-); Platelet Count 148 10^3/uL (130-400); Red Blood Cell Count 3.66 10^6/uL (4.70-6.10); Red Cell Dist. Width 12.8 % (11.5-14.5); White Blood Cell Count 5.4 10^3/uL (4.8-10.8)
[2024-01-27 05:09] LABS: ALT (SGPT) 28 U/L (0-50); AST (SGOT) 36 U/L (17-59); Albumin 3.1 g/dl (3.5-5.0); Alkaline Phosphatase 63 U/L (38-126); Blood Urea Nitrogen 10 mg/dl (9-20); Calcium 8.6 mg/dl (8.4-10.2); Carbon Dioxide 30 mmol/L (22-30); Chloride 99 mmol/L (98-107); Estimated Creatinine Clearance 113 ml/min; Glucose 133 mg/dl (70-99); Potassium 3.1 mmol/L (3.5-5.1); Sodium 136 mmol/L (135-145); Total Bilirubin 1.1 mg/dl (0.2-1.3); Total Protein 5.7 g/dl (6.3-8.2); eGFR > 60.00
[2024-01-27] MEDS: KCL 40 MEQ PO (06:24)
[2024-01-27] MEDS: FOLVITE 1 MG PO (08:20)
[2024-01-27] MEDS: THIAMINE INJECTION 200 MG IV ×2 (08:20→20:55)
[2024-01-27] MEDS: PROTONIX IV 40 MG IV ×2 (08:20→20:55)
[2024-01-27] MEDS: NSS (PRESERVATIVE FREE) 10 ML IV ×2 (08:20→20:55)
[2024-01-27] MEDS: ELAVIL 25 MG PO (08:21)
[2024-01-27] MEDS: LR 1000 IV (08:21)
[2024-01-27] MEDS: DEPAKOTE ER (24 HR RELEASE) 1000 MG PO (08:21)
--- NOTE | 2024-01-27 10:31 | W.PN.HOSP.TC ---
Today's Communication/Plan
-
CLD and NPO starting MN for EGD
transfer to [facility]
Assessment / Plan
Assessment / Plan
73yo M, essentially homeless with GERD, alcohol dependency came with vomiting with the blood for 1 day.
A/P:
#Acute GIB, concern for variceal bleed
PPI BID
Oc stoppedtreotide
GI consult: plan for EGD on 01/28/24
Two large bore IV, serial Hgb, transfuse as needed
#Alcohol abuse
Thiamin/Folate
MSAS protocol
Watch for DT
#Mood d/o
cont home meds
#Indirect bilirubinemia
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
#Mild lipase elevation
without other criteria for pancreatitis
#Fatty liver disease
low cholesterol diet, avoid alcohol
DVT ppx SCDs
Full code
I have spent at least 37min reviewing chart, test results, communication with consultants and direct patient care
Anticipated Discharge: 24 - 48 hours
Subjective/Interval History
-
Date of Service: January 27, 2024
Objective Data
-
Labs:
Laboratory Results
01/27/24
04:23
WBC 5.4
Hgb 12.1 L
Hct 33.5 L
Plt Count 148
Sodium 136
Potassium 3.1 L
Chloride 99
Carbon Dioxide 30
BUN 10
Creatinine 0.6 L
Glucose 133 H
Calcium 8.6
Total Bilirubin 1.1
AST 36
ALT 28
Alkaline Phosphatase 63
Vital Signs:
Vital Signs
Temp Pulse Resp BP Pulse Ox
98.4 F 68 17 159/83 96
01/27/24 07:17 01/27/24 06:00 01/27/24 06:00 01/27/24 06:00 01/27/24 06:00
I&O
01/26/24 01/27/24 01/28/24
06:59 06:59 06:59
Intake Total 1834 / 1834 3900 / 3900
Output Total 600 / 600 1999 / 2000 650 / 650
Balance 1234 / 1234 1900 / 1900 -650 / -650
Physical Exam
-
General: Well Developed and Well Nourished
Respiratory: Clear to Auscultation
Cardiac: Regular Rhythm
GI: Soft, Nontender and Nondistended
Psych: Calm
--- NOTE | 2024-01-27 12:44 | PTCARENOTE ---
Pt remains AOx3, pleasant and cooperative, MSAS scores benign. Written for MS level of care. Per Dr. Thibodeaux, plan will be to continue CLD with NPO after MN for endoscopy tomorrow. No futher hematemesis, tolerating clears, anxious to eat solid
foods. Call rdz in hand, safe environment maintained.
[2024-01-27 20:29] LABS: Hepatitis C Antibody Negative (Negative)
[2024-01-28] VITALS (7 sets, daily range): BP systolic 18–134; BP diastolic 62–84; PULSE 81
[2024-01-28 06:40] LABS: % Basophils 0.2 % (0-2); % Eosinophils 2.2 % (0-6); % Immature Granulocytes 0.5 % (0-0.5); % Lymphocytes 22.2 % (20.5-51.1); % Monocytes 9.8 % (1.7-9.3); % Neutrophils 65.1 % (42.2-75.2); Absolute Eosinophils 0.1 10^3/uL (0-0.7); Absolute Lymphocytes 0.9 10^3/uL (1.2-3.4); Absolute Monocytes 0.4 10^3/uL (0.1-0.6); Absolute Neutrophils 2.7 10^3/uL (1.4-6.5); Hematocrit 35.9 % (39.0-52.0); Hemoglobin 12.6 g/dL (13.0-18.0); Mean Corp Hgb Conc. 35.1 g/dL (33.0-37.0); Mean Corpuscular Hgb 32.9 pg (27.0-31.0); Mean Corpuscular Volume 93.7 fL (80.0-94.0); Mean Platelet Volume 10.1 fL (7.4-10.4); Nucleated Red Blood Cells % 0 % (-); Platelet Count 160 10^3/uL (130-400); Red Blood Cell Count 3.83 10^6/uL (4.70-6.10); Red Cell Dist. Width 12.9 % (11.5-14.5); White Blood Cell Count 4.1 10^3/uL (4.8-10.8)
[2024-01-28 07:11] LABS: Blood Urea Nitrogen 8 mg/dl (9-20); Calcium 8.7 mg/dl (8.4-10.2); Carbon Dioxide 35 mmol/L (22-30); Chloride 98 mmol/L (98-107); Estimated Creatinine Clearance 97 ml/min; Glucose 106 mg/dl (70-99); Potassium 3.5 mmol/L (3.5-5.1); Sodium 140 mmol/L (135-145); eGFR > 60.00
[2024-01-28] MEDS: FOLVITE 1 MG PO (07:38)
[2024-01-28] MEDS: NSS (PRESERVATIVE FREE) 10 ML IV (07:38)
[2024-01-28] MEDS: ELAVIL 25 MG PO (07:38)
[2024-01-28] MEDS: PROTONIX IV 40 MG IV (07:38)
[2024-01-28] MEDS: FLOMAX 0.4 MG PO (07:38)
[2024-01-28] MEDS: PROSCAR 5 MG PO (07:38)
[2024-01-28] MEDS: DEPAKOTE ER (24 HR RELEASE) 1000 MG PO (07:38)
[2024-01-28] MEDS: THIAMINE INJECTION 200 MG IV (07:39)
--- NOTE | 2024-01-28 10:53 | W.PN.HOSP.TC ---
Addendum entered and electronically signed by Paul Thibodeaux MD 01/28/24 13:52:
Alcohol abuse with mild withdrawal on admission
Original Note:
Today's Communication/Plan
-
For EGD today
Hgb stable
Assessment / Plan
Assessment / Plan
73yo M, essentially homeless with GERD, alcohol dependency came with vomiting with the blood for 1 day.
A/P:
#Acute GIB, concern for variceal bleed
PPI BID
stopped octreotide
GI consult: plan for EGD on 01/28/24
Two large bore IV, serial Hgb, transfuse as needed
#Alcohol abuse
Thiamin/Folate
MSAS protocol
Watch for DT
#Mood d/o
cont home meds
#Indirect bilirubinemia
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
#Mild lipase elevation
without other criteria for pancreatitis
#Fatty liver disease
low cholesterol diet, avoid alcohol
DVT ppx SCDs
Full code
I have spent at least 37min reviewing chart, test results, communication with consultants and direct patient care
Anticipated Discharge: Within 24 hours
Subjective/Interval History
-
Date of Service: January 28, 2024
Objective Data
-
Labs:
Laboratory Results
01/28/24
06:24
WBC 4.1 L
Hgb 12.6 L
Hct 35.9 L
Plt Count 160
Sodium 140
Potassium 3.5
Chloride 98
Carbon Dioxide 35 H
BUN 8 L
Creatinine 0.7
Glucose 106 H
Calcium 8.7
Vital Signs:
Vital Signs
Temp Pulse Resp BP Pulse Ox
98.0 F 81 16 134/84 99
01/28/24 07:30 01/28/24 07:30 01/28/24 07:30 01/28/24 07:30 01/28/24 09:51
I&O
01/27/24 01/28/24 01/29/24
06:59 06:59 06:59
Intake Total 3900 / 3900 780 / 780 240 / 240
Output Total 1999 / 1999 650 / 650
Balance 1900 / 1900 130 / 130 240 / 240
--- NOTE | 2024-01-28 12:17 | PN.CDI ---
CDI
- -
CDI:
Physician Documentation Request
Admit Date: 01/25/24 13:00
Dear Doctor Carlos Eduardo,
Patient admitted for GI bleed.
01/24 PCN: 'MSAS 6 for tachycardia, tremors, and reported nausea. PRN Ativan 1mg PO provided per protocol.'
01/25 PCN: 'MSAS of 5 for tachycardia, tremors, and reported nausea. PRN Ativan 1mg PO administered per MSAS protocol. MSAS remained < 4 after on follow up assessments.'
01/27 Hospitalist PN: 'Alcohol abuse, Thiamin/Folate, MSAS protocol, Watch for DT'
Lorazepam 1mg PO administered 01/24, 01/25
If possible, please provide further specificity as outlined below:
Alcohol abuse with withdrawal
Alcohol abuse
Other
Use of terms such as suspected, likely, concern for, or probable (associated with a specific diagnosis that is being evaluated, monitored, or treated as if it exists) are acceptable and can be coded in the inpatient setting, when documented at the
time of discharge.
Thank you,
Jodie Santos RN, BSN
CDI Specialist
Available via [place] text
Please use your independent medical judgment in providing your response.
--- NOTE | 2024-01-28 17:06 | CM ---
Alert awake oriented patient who lives in [facility] .He is homeless. He was in alcohol rehab in [place] . Then in half way house in [place]. He has no family support.He has no phone. PT OT indicate he is candidate for inpatient Alcohol
rehab VS physical SNF.Pt does have an ID. Notified Mando from [facility] to see pt in am . PT OT saw today.Pt has used walker but does not have one.
Pharmacy [facility]
PCP none
PLAN inpatient Alcohol rehab VS physical SNF
[2024-01-28] MEDS: PROTONIX 40 MG PO (20:50)
[2024-01-28] MEDS: VITAMIN B1 100 MG PO (20:50)
[2024-01-29 05:47] LABS: Hemoglobin 12.1 g/dL (13.0-18.0); Mean Corp Hgb Conc. 36.7 g/dL (33.0-37.0); Mean Corpuscular Hgb 32.7 pg (27.0-31.0); Mean Corpuscular Volume 89.2 fL (80.0-94.0); Mean Platelet Volume 10.2 fL (7.4-10.4); Platelet Count 148 10^3/uL (130-400); Red Cell Dist. Width 13.1 % (11.5-14.5); White Blood Cell Count 3.6 10^3/uL (4.8-10.8)
[2024-01-29 06:18] LABS: Blood Urea Nitrogen 13 mg/dl (9-20); Calcium 8.6 mg/dl (8.4-10.2); Carbon Dioxide 30 mmol/L (22-30); Chloride 99 mmol/L (98-107); Estimated Creatinine Clearance 97 ml/min; Glucose 116 mg/dl (70-99); Potassium 3.3 mmol/L (3.5-5.1); Sodium 138 mmol/L (135-145); eGFR > 60.00
[2024-01-29 07:20] VITALS: BP 128/81
[2024-01-29] MEDS: FOLVITE 1 MG PO (08:02)
[2024-01-29] MEDS: PROSCAR 5 MG PO (08:02)
[2024-01-29] MEDS: VITAMIN B1 100 MG PO (08:02)
[2024-01-29] MEDS: ELAVIL 25 MG PO (08:02)
[2024-01-29] MEDS: FLOMAX 0.4 MG PO (08:02)
[2024-01-29] MEDS: KCL 40 MEQ PO (08:02)
[2024-01-29] MEDS: PROTONIX 40 MG PO (08:02)
[2024-01-29] MEDS: DEPAKOTE ER (24 HR RELEASE) 1000 MG PO (08:03)
--- NOTE | 2024-01-29 11:36 | CM ---
Addendum entered by Elizabeth D[facility] 01/29/24 14:27:
1700 pickup
[facility]21[facility]
Reviewed with Dr Thibodeaux- ready for dc
Pt offered mutiple beds [place], [facility], [facility], [facility], [facility]/1st choice- no beds available
Pt selected [facility]
IMM verbally reviewed- copy provided
Discussion with Cam Can[place]ola/TOSHIA Director
Approval for hospital coverage for van
[place]/transport aware
Update to Mando/ROSALIE
Transport form completed
Discharge Disposition- [facility] SNF via van
Phone- [phone] 2nd floor Fax- [phone]
Original Note:
TOSHIA met with pt bedside
He is requesting SNF placement be arranged with option for LTC transition
Reviewed PT/OT evals and VN recs
Pt requested referrals to be sent to at least see if he qualifies
PASRR completed and broad net of referrals sent to [place] facilities
Discussion with Mando/ROSALIE
He noted pt interested in inpt D/A rehab should SNF not be able to be arranged
Discharge Disposition- SNF vs inpt D/A tx
--- NOTE | 2024-01-29 12:44 | W.PN.HOSP.TC ---
Addendum entered and electronically signed by Paul Thibodeaux MD 01/29/24 16:37:
No Ativan given over past 24h
Original Note:
Today's Communication/Plan
-
CM for d/c to [facility]
Assessment / Plan
Assessment / Plan
73yo M, essentially homeless with GERD, alcohol dependency came with vomiting with the blood for 1 day. Hgb remained stable, EGD on 01/28/24 showed esophagitis. Alcohol cessation advised. Home PT recommended, [facility] - CM working on
short term rehab. Medically stable for d/c
A/P:
#Acute GIB
#GAstritis
#Esophagitis
PPI BID
stopped octreotide
GI consult: plan for EGD on 01/28/24
Two large bore IV, serial Hgb, transfuse as needed
#Alcohol abuse
Thiamin/Folate
MSAS protocol
Watch for DT
#Mood d/o
cont home meds
#Indirect bilirubinemia
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
#Mild lipase elevation
without other criteria for pancreatitis
#Fatty liver disease
low cholesterol diet, avoid alcohol
DVT ppx SCDs
Full code
I have spent at least 37min reviewing chart, test results, communication with consultants and direct patient care
Anticipated Discharge: Within 24 hours
Subjective/Interval History
-
Date of Service: January 29, 2024
Objective Data
-
Labs:
Laboratory Results
01/29/24
05:26
WBC 3.6 L
Hgb 12.1 L
Hct 33.0 L
Plt Count 148
Sodium 138
Potassium 3.3 L
Chloride 99
Carbon Dioxide 30
BUN 13
Creatinine 0.7
Glucose 116 H
Calcium 8.6
Vital Signs:
Vital Signs
Temp Pulse Resp BP Pulse Ox
97.7 F 96 16 128/81 99
01/29/24 07:20 01/29/24 07:20 01/29/24 07:20 01/29/24 07:20 01/29/24 08:32
I&O
01/28/24 01/29/24 01/30/24
06:59 06:59 06:59
Intake Total 780 / 780 840 / 840
Output Total 650 / 650
Balance 130 / 130 840 / 840
Review of Systems
-
History Source: Patient
All other systems: Reviewed and negative
Physical Exam
-
General: No Apparent Distress
HEENT: Normocephalic
Cardiac: Regular Rhythm
GI: Soft, Nontender and Nondistended
Musculoskeletal: No Clubbing, No Cyanosis and No Edema
Skin: Warm
Neuro: Awake, Alert, Oriented and AO x 3
Psych: Calm
--- NOTE | 2024-01-29 12:50 | W.DCSUMMARY ---
Discharge Summary
Discharge Data
Date of Admission: 01/25/24
Date of Discharge: 01/29/24
-
Pending Results: Yes
Hospital Course
73yo M, essentially homeless with GERD, alcohol dependency came with vomiting with the blood for 1 day. Hgb remained stable, EGD on 01/28/24 showed esophagitis. Alcohol cessation advised. Home PT recommended, [facility] patient is homeless - working on
short term rehab. Medically stable for d/c, no signs of withdrawal over 24h
I have spent at least 38min discharging the patient
A/P:
#Acute GIB
#GAstritis
#Esophagitis
#Alcohol abuse with mild withdrawal on admission
#Mood d/o
#Indirect bilirubinemia
#Mild lipase elevation
#Fatty liver disease
Discharge Plan
-
Patient Disposition: Senior Living/SNF
Discharge Diagnosis/Procedures: GIB
Diet: Regular
Activity: No restrictions
Driving Restrictions: As prior to admission
Referrals:
UNKNOWN - PT DOES,NOT KNOW [Family Provider] -
Prescriptions:
New
thiamine HCl (vitamin B1) 100 mg Tablet
100 mg PO BID Qty: 30 0RF
tamsulosin 0.4 mg Capsule
0.4 mg PO DAILY Qty: 30 0RF
pantoprazole 40 mg Tablet,Delayed Release (Dr/Ec)
40 mg PO BID Qty: 60 0RF
folic acid 1 mg Tablet
1 mg PO DAILY Qty: 30 0RF
finasteride 5 mg Tablet
5 mg PO DAILY Qty: 30 0RF
Continued
thiamine HCl (vitamin B1) 100 mg Tablet
100 mg PO DAILY
therapeutic multivitamin Tablet
1 tab PO DAILY
amitriptyline 25 mg Tablet
25 mg PO DAILY
Patient Comments:
01/25/24: Patient takes a medication that makes him drowsy but does not know name. This was most recent fill in pharmacy records on 12/23/23 for 30 tablets over 30 days.
pantoprazole 40 mg Tablet,Delayed Release (Dr/Ec)
40 mg PO DAILY
divalproex 500 mg Tablet Extended Release 24 Hr
1,000 mg PO DAILY
folic acid 1 mg Tablet
1 mg PO DAILY
Discharge Orders:
Discharge Patient (As Directed); Ordered 01/29/24
Ordered By: Paul Thibodeaux
Discharge Date and Time
Print Language: CYMRO
[2024-01-29 15:30] VITALS: BP 140/76
[2024-01-29] MEDS: PREVNAR 20 0.5 ML IM (16:28)
--- NOTE | 2024-01-29 18:24 | PTCARENOTE ---
Discharge orders reviewed. Pneumococcal vaccine administered. IV sites removed. Report called to [facility]. Pt with wheelchair van discharge to [place].
== END 2024-01-29 18:20 | DRG 378 ==
LOC: 3 WEST ACU 13:00
PROVIDERS: Physician Assistant; Registered Nurse; ADMITTING PHYSICIAN Internal Medicine; ATTENDING PHYSICIAN Internal Medicine; CONSULT PHYSICIAN Internal Medicine Gastroenterology; EMERGENCY PHYSICIAN Emergency Medicine
PROC: 0DJ08ZZ Inspection of Upper Intestinal Tract, Via Natural or Artificial Opening Endoscopic (ICD-10-PCS; 2024-01-28)
DX: K92.0 Hematemesis (principal); F10.139 Alcohol abuse with withdrawal, unspecified; K76.6 Portal hypertension; Z59.00 Homelessness unspecified; F39 Unspecified mood [affective] disorder; K76.0 Fatty (change of) liver, not elsewhere classified; E83.52 Hypercalcemia; D72.829 Elevated white blood cell count, unspecified; F17.210 Nicotine dependence, cigarettes, uncomplicated; K21.00 Gastro-esophageal reflux disease with esophagitis, without bleeding; K29.70 Gastritis, unspecified, without bleeding; K31.89 Other diseases of stomach and duodenum; K44.9 Diaphragmatic hernia without obstruction or gangrene; R03.0 Elevated blood-pressure reading, without diagnosis of hypertension; R06.02 Shortness of breath; Z91.148 Patient's other noncompliance with medication regimen for other reason; Z79.899 Other long term (current) drug therapy
CPT/HCPCS: 71046; 74177; 76700; 80048; 80053; 80164; 80306; 80307; 81003; 82010; 82077; 82248; 82607; 82728; 82746; 82977; 83540; 83550; 83615; 83690; 83735; 84100; 84484; 85014; 85018; 85025; 85027; 85610; 85730; 86803; 86850; 86900; 86901; 87811; 93005; 96361; 96374; 97116; 97162; 97166; 97535; 99285; Q9967

== ENCOUNTER 2024-12-18 22:48 | Inpatient (IN) | payer MEDICARE, OTHER, SELFPAY ==
[2024-12-18 18:24] VITALS: BP 175/111
[2024-12-18 18:48] LABS: Hematocrit 42.9 % (39.0-52.0); Hemoglobin 14.7 g/dL (13.0-18.0); Mean Corp Hgb Conc. 34.3 g/dL (33.0-37.0); Mean Corpuscular Volume 95.8 fL (80.0-94.0); Nucleated Red Blood Cells % 0 % (-); Platelet Count 264 10^3/uL (130-400); Red Cell Dist. Width 15.3 % (11.5-14.5)
[2024-12-18 19:11] LABS: ALT (SGPT) 57 U/L (0-50); AST (SGOT) 64 U/L (17-59); Albumin 4.8 g/dl (3.5-5.0); Alkaline Phosphatase 69 U/L (38-126); Blood Urea Nitrogen 13 mg/dl (9-20); Calcium 9.3 mg/dl (8.4-10.2); Carbon Dioxide 13 mmol/L (22-30); Chloride 101 mmol/L (98-107); Glucose 153 mg/dl (70-99); Lipase 166 U/L (23-300); Potassium 3.6 mmol/L (3.5-5.1); Sodium 142 mmol/L (135-145); Total Protein 8.1 g/dl (6.3-8.2); eGFR > 60.00
[2024-12-18 19:46] VITALS: BMI 28.5
--- NOTE | 2024-12-18 19:50 | PHANOTE ---
MED REC NOTE- PATIENT SAID HE STOPPED HIS DIVALPROEX DR 250MG TID, FINASTERIDE 5MG DAILY AND FLOMAX 0.4MG DAILY ABOUT A MONTH OR MORE AGO WHEN HE DISCHARGE HIMSELF OUT OF A CUSTODIAL.
[2024-12-18 20:00] VITALS: BP 167/98
[2024-12-18] MEDS: ZOFRAN 4 MG IV (20:59)
[2024-12-18] MEDS: PEPCID 20 MG IV (21:00)
[2024-12-18] MEDS: D5/0.9% SODIUM CHLORIDE 1000 IV (21:44)
[2024-12-18 22:03] LABS: Venous Blood Gas B.E. -4.4 mmol/L (-4 to +4); Venous Blood Gas O2 Sat % 76.3 %
[2024-12-18] MEDS: D5/0.9% SODIUM CHLORIDE IV (22:05)
--- NOTE | 2024-12-18 22:11 | ED.GENMED ---
History of Present Illness
General
Chief Complaint: Abdominal Symptoms
Source: patient
Exam Limitations: none
Time Seen by Provider: 12/18/24 19:50
History of Present Illness
History of Present Illness:
Patient is a 74-year-old male with past medical history of alcohol use disorder, anxiety, depression, who [facility] for evaluation of nausea and vomiting over the past 2
days. Patient also notes upper abdominal pain. Patient states that he has been unable to keep anything down. He denies any diarrhea or constipation. He denies urinary symptoms such as dysuria or hematuria. Patient denies similar symptoms in the
past. Patient reports that he typically drinks at least 5 drinks almost every day. He reports he has not been able to drink alcohol over the past 2 days due to his nausea and vomiting. Patient denies fevers, chills, chest pain, shortness of
breath. He notes that up until 6 weeks ago he was at a short-term rehab facility. He reports that since then [facility].
Past History
Past History
ED Past Medical History: Other (Foot drop, hernia in his lower abdomen, Fx Leg) and Other (Alcohol abuse)
ED Past Surgical History: Orthopedic (Right lower extremity orthopedic surgical procedure)
Social History
Tobacco: Smoker
Alcohol: Chronic alcoholic (Molt liquir and Vodka, As much as he can get)
Personal:
Living: homeless
Employment: Not employed
Family History
Family History: Other (Noncontributory)
Review of Systems
Review of Systems
Allergies reviewed?: Yes
All Other Systems: ROS reviewed and negative except as documented in HPI and ROS
Constitutional: Reports no symptoms
EENT: Reports no symptoms
Respiratory: Reports no symptoms
ABD/GI: Reports abdominal pain, nausea and vomiting; Denies diarrhea
: Reports no symptoms
Musculoskeletal: Reports no symptoms
Skin: Reports no symptoms
Neurological: Reports no symptoms
Endocrine: Reports no symptoms
Hematologic/Lymphatic: Reports no symptoms
Psychiatric: Reports no symptoms
Phy Exam
General Physical Exam
General Presentation: well appearing and no apparent distress
General Skin: warm and dry
General Habitus: normal
General Mental: alert
General Hydration: dry mucous membranes
ENT Exam
ENT Exam: EOMI, pharynx normal, neck supple and normocephalic
Eye Exam
Eye Exam: PERRL, cornea clear and conjunctiva normal
Cardiovascular Exam
Cardiovascular Exam: regular rate/rhythm, no murmur, normal peripheral pulses and other (1+ pitting pretibial and pedal edema)
Pulmonary Exam
Pulmonary Exam: lungs clear, no respiratory distress, no rales, no crackles, no rhonchi, no stridor, no wheezing and no cough
Gastrointestinal Exam
Gastrointestinal Exam: normal bowel sounds, soft, no organomegaly, no pulsatile mass, non distended and other (mild mid-epigastric ttp)
Neurological Exam
Neurological Exam: alert, oriented x3, no motor deficits and speech normal
Musculoskeletal Exam
Musculoskeletal Exam: full ROM and no edema
Skin Exam
Skin Exam: normal color, warm/dry, no rash and no petechia
Psychiatric Exam
Psychiatric Exam: normal mood/affect
Course
Orders/Labs/Results
Orders:
Orders
12/18/24 18:40
B-Hydroxybutyrate Urgent
Comment: ADD ON
Complete Blood Count/With Diff Urgent
Comprehensive Metabolic Panel Urgent
Lipase Urgent
12/18/24 20:35
Famotidine [Pepcid] 20 mg IV NOW STA
12/18/24 20:37
Electrocardiogram (*1) Urgent
Reason for Study: QTc Monitoring
CT Abd/pelvis W Iv Cont Urgent
Comment:
Reason For Exam: abdominal pain, intractable vomiting, hx of etoh
EKG- Treatment ONCE
Ondansetron Injectable [Zofran] 4 mg IV NOW STA
12/18/24 20:57
Add On- LAB Urgent
Tests Added?: BHB
12/18/24 21:00
Dextrose 5%/0.9%Sodchl 1000 ml [D5/0.9% Sodium Chloride] 1,000 ml IV 1,000 mls/hr
12/18/24 21:59
Venous Blood Gas Urgent
%Oxygen/Room Air: 100
Abnormal Lab Results
12/18/24 12/18/24
18:40 21:59
RBC 4.48 L 10^6/uL
(4.70-6.10)
MCV 95.8 H fL
(80.0-94.0)
MCH 32.8 H pg
(27.0-31.0)
RDW 15.3 H %
(11.5-14.5)
Abs Immat Gran (auto) 0.1 H 10^3/uL
(0-0.05)
Absolute Neuts (auto) 8.5 H 10^3/uL
(1.4-6.5)
Absolute Lymphs (auto) 0.4 L 10^3/uL
(1.2-3.4)
Immature Gran % 0.6 H %
(0-0.5)
Neutrophils % 89.8 H %
(42.2-75.2)
Lymphocytes % 4.4 L %
(20.5-51.1)
VBG HCO3 20.2 L mmol/L
(22-27)
Carbon Dioxide 13 L* mmol/L
(22-30)
Glucose 153 H mg/dl
(70-99)
Total Bilirubin 1.9 H mg/dl
(0.2-1.3)
AST 64 H U/L
(17-59)
ALT 57 H U/L
(0-50)
B-Hydroxybutyrate > 9.0 H mmol/L
(0.02-0.27)
12/18/24 18:40
12/18/24 18:40
Vital Signs
Initial and Last Documented VS:
Initial Vital Signs
Temp Pulse Resp BP Pulse Ox
98.3 F 101 16 175/111 97
12/18/24 18:24 12/18/24 18:24 12/18/24 18:24 12/18/24 18:24 12/18/24 18:24
Last Documented Vital Signs
Temp Pulse Resp BP Pulse Ox
98.3 F 97 17 167/98 97
12/18/24 18:24 12/18/24 20:30 12/18/24 20:30 12/18/24 20:00 12/18/24 20:30
*Pulse Oximetry
SaO2: 97
Oxygen Mode of Delivery: Room air
Patient hypoxic: no
*Critical Care Note
Total Time (30-74mins, 75-104mins- exclusive of procedures): Not Applicable
Update Note
Update Note:
74-year-old male with history of alcohol use disorder presents to the emergency department for evaluation of upper abdominal pain associated with intractable nausea and vomiting over the past 2 days. On arrival, patient is hypertensive, afebrile.
On exam, patient is overall well-appearing, he is in no acute distress, he is spitting into an emesis bag, he has mild upper abdominal tenderness without rebound or guarding. Labs were obtained while the patient was in the waiting room and are
notable for a bicarb of 13, patient does have an elevated anion gap to 18, T. bili is elevated at 0.9, patient has a very mild transaminitis, lipase is not elevated. CT of the abdomen and pelvis was performed that demonstrates no acute abnormality
to account for the patient's symptoms today. Patient had a BHB added on to his labs which is greater than 9. I am suspicious for an alcoholic ketoacidosis. Patient given dextrose containing fluids, ondansetron and famotidine for symptomatic
relief. Patient will require admission for further treatment. Patient signed out to the hospitalist without complication.
ED Attending Note
-
Portions of this chart may have been created with voice recognition software.� Occasional wrong word or��sound alike� substitutions may have occurred due to the inherent limitations of voice recognition software.
Discharge Plan
Departure
Patient Disposition: Admit
Date of Disposition: 12/18/24
Time of Disposition: 22:10
Presentation/result/management discussed w/ accepting MD/DO: Hospitalist
Patient with high blood pressure during this ER visit?: Yes
Discharge Problem:
Alcoholic ketoacidosis
Prescriptions:
No Action
therapeutic multivitamin Tablet
1 tab PO DAILY
folic acid 1 mg Tablet
1 mg PO DAILY
thiamine HCl (vitamin B1) 100 mg Tablet
100 mg PO BID Qty: 30 0RF
pantoprazole 40 mg Tablet,Delayed Release (Dr/Ec)
40 mg PO BID Qty: 60 0RF
Referrals:
NONE,* [Family Provider, Internal Medicine]
Interventions
Interventions:
*Risk Screen - Suicide Last Done: 12/18/24 18:24
*General Assessment Last Done: 12/18/24 18:24
*Neglect/Abuse Screening Last Done: 12/18/24 18:24
*ED- Fall Risk Assessment Last Done: 12/18/24 18:24
*ED COVID-19 Vaccine History Last Done: 12/18/24 18:24
FE-Tzwpxb-Crzvdrkrpd Assessment Last Done: 12/18/24 19:46
Discharge Date and Time
Print Language: SLOVAK
--- NOTE | 2024-12-18 22:13 | HPS.HSE ---
Family Physician
-
Family Physician: * NONE
Chief Complaint
-
Abdominal Pain, Nausea and Vomiting
History of Present Illness
Patient is a 74 y/o male past medical history of anxiety/depression, alcohol use disorder who presents with epigastric abdominal pain, reflux, nausea and vomiting. Patient reports he stopped drinking two days ago when he developed epigastric pain,
increased reflux, nausea and vomiting. Patient has not been able to tolerate any oral intake. He denies any hematemesis. He denies fevers, sweats or chills.
Medical History
Past Medical History
Past Medical History: Reports Other
Additional Past Medical History:
Alcohol Use Disorder
Portal Hypertensive Gastropathy
Esophagitis
Past Surgical History: Reports Other
Additional Past Surgical History:
Abdominal Hernia Repair
Social History
Tobacco: Smoker (/2 PPD)
Alcohol: Daily (At least 5 drinks per day)
Family History
Family History: Not pertinent
Allergies / Home Medications
Allergies reflects when Allergies were last updated in [facility].
Home Medications with original date entered in [facility]
Allergy/Medication List:
Allergies
Allergy/AdvReac Type Severity Reaction Status Date / Time
No Known Allergies Allergy Verified 04/03/20 20:56
Home Medications
folic acid 1 mg tablet 1 mg PO DAILY Supplement 01/25/24
therapeutic multivitamin 1 tab PO DAILY Supplement 01/25/24
pantoprazole 40 mg tablet,delayed release 40 mg PO BID #60 tabs 01/29/24
thiamine HCl (vitamin B1) 100 mg tablet 100 mg PO BID #30 tabs 01/29/24
Review of Systems
-
A 12 point ROS was completed and negative except as noted: Yes
Constitutional: Denies Fever or Chills
Respiratory: Denies Cough or Trouble Breathing
Cardiac: Denies Chest Pain or Palpitations
Abdomen/GI: Reports See HPI
Physical Exam
Vital Signs
Vital Signs
Temp Pulse Resp BP Pulse Ox
98.3 F 97 17 167/98 97
12/18/24 18:24 12/18/24 20:30 12/18/24 20:30 12/18/24 20:00 12/18/24 20:30
Physical Exam
General: Comfortable and Conversant
HEENT: NormoCephalic, Anicteric and Atraumatic
Respiratory: Clear and Non Labored Respirations
Cardiac: S1/S2 and Regular Rhythm
GI: Soft and Tender (Mild epigastric without rebound or guarding)
Rectal: Deferred by Provider
Musculoskeletal: No Clubbing, No Cyanosis and Other (Trace edema bilateral lower extremities which patient reports is chronic)
Skin: Warm and Dry
Neuro: Awake, Alert, Nonfocal/grossly intact and Other; No Tremors
Psych: Other (Slightly anxious)
Laboratory Results
-
12/18/24 18:40
12/18/24 18:40
Laboratory Results
Total Bilirubin 1.9 mg/dl (0.2-1.3) H 12/18/24 18:40
AST 64 U/L (17-59) H 12/18/24 18:40
ALT 57 U/L (0-50) H 12/18/24 18:40
Alkaline Phosphatase 69 U/L (38-126) 12/18/24 18:40
Lipase 166 U/L (23-300) 12/18/24 18:40
Data Reviewed
-
Lab Data: Labs Reviewed by me
Old Records: Reviewed
Impression/Plan
-
Alcoholic Ketoacidosis
-Continue IVFs with D5NS
-Recheck labs in AM
Alcoholic Gastritis / Esophagitis
-Continue Protonix BID
-Continue NPO with sips/chips
Alcohol Withdrawal
-Continue thiamine and folic acid
-Continue phenobarbital taper
-Monitor MSAS
DVT proph: SCDs
Code Status: Full Code
[2024-12-18] MEDS: PROTONIX IV 40 MG IV (22:54)
[2024-12-18] MEDS: NSS (PRESERVATIVE FREE) 10 ML IV (22:55)
[2024-12-18 23:00] VITALS: BP 167/94
--- NOTE | 2024-12-18 23:06 | W.PN.UPDATE ---
Update Note
Progress Note Update
This is an addendum to H&P written by Shruti Blake on 12/18/2024. Patient seen and examined independently with PA.
74-year-old male past medical history of GERD, alcohol use disorder, prior gastritis/esophagitis, mood disorder, fatty liver disease, presenting for nausea vomiting, upper abdominal pain. Drinks 5 drinks of alcohol per day.
Vital signs show tachycardia. Blood pressure 175/111.
Labs show bicarb of 13. Mild transaminitis.
VBG shows pH of 7.37, bicarb of 20. Beta hydroxybutyrate greater than 9.
CT abdomen pelvis shows no significant abnormality in abdomen or pelvis. Probable reflux esophagitis. Hepatic steatosis.
Patient with alcohol withdrawal, with associated alcoholic esophagitis/gastritis and alcoholic ketoacidosis. Elevated blood pressure secondary to alcohol withdrawal and abdominal pain.
Thiamine and folate. Alcohol withdrawal protocol. Low dose phenobarbital protocol. IV fluids with D5 normal saline. Protonix twice daily.
[2024-12-19] VITALS (11 sets, daily range): BP systolic 110–170; BP diastolic 62–95; PULSE 85; O2SAT 94–99; BMI 29.2
[2024-12-19] MEDS: D5/0.9% SODIUM CHLORIDE 1000 IV ×2 (01:38→11:44)
--- NOTE | 2024-12-19 03:22 | PTCARENOTE ---
Receive pt from ER. Pt alert oriented X3, in no distress, asking for something to drink. Pt assist X1 w/RW to bed, appears weak. Pt oriented to the room, call rdz within reach. Bed alarm in place for pt's safety. MSAS=3. Pt denies nausea, vomiting,
fever, or chills. LR=123/95, HA=498, T=98, GfE3=702% on RA. Pt on NSR on telemonitor. Will continue to monitor the pt.
[2024-12-19] MEDS: PHENOBARBITAL 97.5 MG IV ×3 (07:48→21:35)
[2024-12-19] MEDS: PROTONIX 40 MG PO ×2 (07:48→20:29)
[2024-12-19] MEDS: THIAMINE INJECTION 200 MG IV ×2 (07:48→20:30)
[2024-12-19] MEDS: FOLVITE 1 MG PO (07:48)
[2024-12-19 09:18] LABS: INR 1.00; PT 13.7 Sec (11.4-14.6)
[2024-12-19 09:19] LABS: APTT 30.6 Sec (23.4-35.0)
[2024-12-19 09:34] LABS: Hematocrit 33.3 % (39.0-52.0); Hemoglobin 11.7 g/dL (13.0-18.0); Mean Corp Hgb Conc. 35.1 g/dL (33.0-37.0); Mean Corpuscular Volume 94.3 fL (80.0-94.0); Platelet Count 189 10^3/uL (130-400); Red Cell Dist. Width 15.0 % (11.5-14.5)
[2024-12-19 10:11] LABS: ALT (SGPT) 38 U/L (0-50); AST (SGOT) 33 U/L (17-59); Albumin 3.1 g/dl (3.5-5.0); Alkaline Phosphatase 52 U/L (38-126); Blood Urea Nitrogen 18 mg/dl (9-20); Calcium 8.1 mg/dl (8.4-10.2); Carbon Dioxide 24 mmol/L (22-30); Chloride 108 mmol/L (98-107); Estimated Creatinine Clearance 110 ml/min; GGTP 23 U/L (15-73); Glucose 164 mg/dl (70-99); Magnesium 1.7 mg/dl (1.6-2.3); Potassium 3.2 mmol/L (3.5-5.1); Sodium 139 mmol/L (135-145); Total Protein 5.7 g/dl (6.3-8.2); eGFR > 60.00
--- NOTE | 2024-12-19 11:32 | W.PN.HOSP.TC ---
Today's Communication/Plan
-
slow IVF
start diet, pt told to eat slowly
continue Protonix
K supplement
Assessment / Plan
Assessment / Plan
Alcoholic Ketoacidosis
better CO2 13-->24
-Continue IVFs with D5NS
-Recheck labs in AM
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
Alcoholic Gastritis / Esophagitis
-Continue Protonix BID
-begin cautious diet
Hypokalemia
will supplement
Alcohol Withdrawal
-Continue thiamine and folic acid
-Continue phenobarbital taper
-Monitor MSAS
DVT proph: SCDs
Met with CM. Pt lives in a Motel and has no family support
Code Status: Full Code
Anticipated Discharge: > 48 hours
Subjective/Interval History
-
Date of Service: December 19, 2024
Feels shaky, poor appetite
Objective Data
-
Labs:
Laboratory Results
12/19/24
08:44
WBC 9.5
Hgb 11.7 L D
Hct 33.3 L
Plt Count 189 D
PT 13.7
INR 1.00
APTT 30.6
Sodium 139
Potassium 3.2 L
Chloride 108 H
Carbon Dioxide 24
BUN 18
Creatinine 0.5 L
Glucose 164 H
Calcium 8.1 L
Total Bilirubin 1.4 H
AST 33
ALT 38
Alkaline Phosphatase 52
Vital Signs:
Vital Signs
Temp Pulse Resp BP Pulse Ox
97.9 F 98 18 144/71 98
12/19/24 07:55 12/19/24 07:55 12/19/24 07:55 12/19/24 07:55 12/19/24 07:55
I&O
12/18/24 12/19/24 12/20/24
06:59 06:59 06:59
Intake Total 500 / 500
Output Total 400 / 400
Balance 100 / 100
Review of Systems
-
History Source: Patient and Coordinated Provider
Constitutional: Denies Fever
EENT: Reports No Symptoms Reported
Respiratory: Reports No Symptoms
Cardiac: Reports No Symptoms
Abdomen/GI: Reports Anorexia
Genitourinary: Reports No Symptoms
Musculoskeletal: Reports No Symptoms
Physical Exam
-
General: Well Developed, Well Nourished, No Apparent Distress and Appears Chronically Ill
HEENT: Normocephalic, Atraumatic and Moist Mucous Membranes
Respiratory: Clear to Auscultation; Negative Wheezes, Rales or Rhonchi
Cardiac: Regular Rhythm and S1/S2
GI: Soft, Nontender and Nondistended
Neuro: Awake, Alert, Oriented and Other (no asterixis)
[2024-12-19] MEDS: D5/0.45%NSS with KCL 20 MEQ 1000 IV (13:05)
--- NOTE | 2024-12-19 15:53 | CM ---
CM met with pt bedside
Pt us unhoused with SS income stream
Currently staying at [facility] for the past few months
He noted he has been in [facility] with in the spring
Pt typically is indep with his ADLs, typically does not utilize a device
Takes public transportation
PCP- none
Rx- Juliet Mcarthru
Pt with daily ETOH use- declined [facility] referral at this time
SNF recs by therapy- pt in agreement with SNF referrals in the [place]
PASRR completed and referrals sent via [facility]
Discharge Disposition- SNF
[2024-12-20] MEDS: D5/0.45%NSS with KCL 20 MEQ 1000 IV ×2 (01:45→13:34)
[2024-12-20 03:44] VITALS: BP 144/78
[2024-12-20 06:00] VITALS: BMI 29.8
[2024-12-20 07:13] LABS: Hematocrit 32.9 % (39.0-52.0); Hemoglobin 11.7 g/dL (13.0-18.0); Mean Corp Hgb Conc. 35.6 g/dL (33.0-37.0); Mean Corpuscular Volume 94.0 fL (80.0-94.0); Nucleated Red Blood Cells % 0 % (-); Platelet Count 155 10^3/uL (130-400); Red Cell Dist. Width 14.4 % (11.5-14.5)
[2024-12-20 07:50] LABS: ALT (SGPT) 34 U/L (0-50); AST (SGOT) 33 U/L (17-59); Albumin 3.0 g/dl (3.5-5.0); Alkaline Phosphatase 55 U/L (38-126); Blood Urea Nitrogen 11 mg/dl (9-20); Calcium 8.3 mg/dl (8.4-10.2); Carbon Dioxide 25 mmol/L (22-30); Chloride 105 mmol/L (98-107); Estimated Creatinine Clearance 110 ml/min; Glucose 135 mg/dl (70-99); Potassium 3.0 mmol/L (3.5-5.1); Sodium 134 mmol/L (135-145); Total Protein 5.6 g/dl (6.3-8.2); eGFR > 60.00
[2024-12-20 08:00] VITALS: BP 127/86
[2024-12-20] MEDS: PHENOBARBITAL 97.5 MG IV ×3 (09:16→21:19)
[2024-12-20] MEDS: THIAMINE INJECTION 200 MG IV ×2 (09:16→20:43)
[2024-12-20] MEDS: FOLVITE 1 MG PO (09:16)
[2024-12-20] MEDS: PROTONIX 40 MG PO ×2 (09:16→20:43)
[2024-12-20 11:45] VITALS: BP 135/73
--- NOTE | 2024-12-20 13:19 | W.PN.HOSP.TC ---
Today's Communication/Plan
-
add oral K supplement
Assessment / Plan
Assessment / Plan
Alcoholic Ketoacidosis
better CO2 13-->24-->25
-Continue IVFs with D51/2NS with 20 Meq KCl
-Recheck labs in AM
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
Alcoholic Gastritis / Esophagitis
-Continue Protonix BID
-begin cautious diet
start prn Mylanta
Hypokalemia
will supplement oral. May be an issue with his GERD
Alcohol Withdrawal
-Continue thiamine and folic acid
-Continue phenobarbital taper
-Monitor MSAS
DVT proph: SCDs
Pt met with CM. Pt lives in a Motel and has no family support
Code Status: Full Code
Anticipated Discharge: 24 - 48 hours
Subjective/Interval History
-
Date of Service: December 20, 2024
Voice is stronger, overall looks better
Objective Data
-
Labs:
Laboratory Results
12/20/24
06:52
WBC 7.8
Hgb 11.7 L
Hct 32.9 L
Plt Count 155
Sodium 134 L
Potassium 3.0 L
Chloride 105
Carbon Dioxide 25
BUN 11
Creatinine 0.5 L
Glucose 135 H
Calcium 8.3 L
Total Bilirubin 1.6 H
AST 33
ALT 34
Alkaline Phosphatase 55
Vital Signs:
Vital Signs
Temp Pulse Resp BP Pulse Ox
98.0 F 81 18 135/73 98
12/20/24 11:45 12/20/24 11:45 12/20/24 11:45 12/20/24 11:45 12/20/24 11:45
I&O
12/19/24 12/20/24 12/21/24
06:59 06:59 06:59
Intake Total 500 / 500 1440 / 1440
Output Total 400 / 400 1350 / 1350
Balance 100 / 100 90 / 90
Review of Systems
-
History Source: Patient and Coordinated Provider
Constitutional: Denies Fever
EENT: Reports No Symptoms Reported
Respiratory: Reports No Symptoms
Cardiac: Reports No Symptoms
Abdomen/GI: Reports Anorexia and GERD
Genitourinary: Reports No Symptoms
Musculoskeletal: Reports No Symptoms
Physical Exam
-
General: Well Developed, Well Nourished, No Apparent Distress and Appears Chronically Ill
HEENT: Normocephalic, Atraumatic and Moist Mucous Membranes
Respiratory: Clear to Auscultation; Negative Wheezes, Rales or Rhonchi
Cardiac: Regular Rhythm and S1/S2
GI: Soft, Nontender and Nondistended
Neuro: Awake, Alert, Oriented and Other (no asterixis)
[2024-12-20] MEDS: KCL 20 MEQ PO ×2 (13:34→20:43)
[2024-12-20] MEDS: MAALOX 30 ML PO ×2 (13:44→18:22)
[2024-12-20 15:19] VITALS: BP 130/78
[2024-12-20 19:39] VITALS: BP 115/75
[2024-12-20 23:06] VITALS: BP 128/80
[2024-12-21] MEDS: D5/0.45%NSS with KCL 20 MEQ 1000 IV (02:08)
[2024-12-21 03:46] VITALS: BP 135/76
[2024-12-21 06:00] VITALS: BMI 29.6
[2024-12-21] MEDS: MAALOX 30 ML PO (06:35)
[2024-12-21 08:02] VITALS: BP 146/75
[2024-12-21 08:02] LABS: Hematocrit 35.0 % (39.0-52.0); Hemoglobin 12.2 g/dL (13.0-18.0); Mean Corp Hgb Conc. 34.9 g/dL (33.0-37.0); Mean Corpuscular Volume 95.6 fL (80.0-94.0); Nucleated Red Blood Cells % 0 % (-); Platelet Count 149 10^3/uL (130-400); Red Cell Dist. Width 14.3 % (11.5-14.5)
[2024-12-21] MEDS: PROTONIX 40 MG PO ×2 (08:11→19:32)
[2024-12-21] MEDS: LUMINAL 64.8 MG PO ×3 (08:11→21:09)
[2024-12-21] MEDS: KCL 20 MEQ PO ×2 (08:11→19:32)
[2024-12-21] MEDS: THIAMINE INJECTION 200 MG IV ×2 (08:11→19:32)
[2024-12-21] MEDS: FOLVITE 1 MG PO (08:11)
[2024-12-21 08:34] LABS: Blood Urea Nitrogen 7 mg/dl (9-20); Calcium 8.4 mg/dl (8.4-10.2); Carbon Dioxide 24 mmol/L (22-30); Chloride 107 mmol/L (98-107); Estimated Creatinine Clearance 110 ml/min; Glucose 120 mg/dl (70-99); Potassium 3.6 mmol/L (3.5-5.1); Sodium 134 mmol/L (135-145); eGFR > 60.00
[2024-12-21 11:39] VITALS: BP 123/74
[2024-12-21] MEDS: CARAFATE SUSPENSION 1 GM PO ×3 (12:38→21:09)
--- NOTE | 2024-12-21 13:34 | W.PN.HOSP.TC ---
Today's Communication/Plan
-
Medically stable for dc to SNF. d/w .
Assessment / Plan
Assessment / Plan
Assessment:
Alcoholic Ketoacidosis
- s/p IVF with improvement
Alcoholic Gastritis/Esophagitis
- continue PPI BID
- added Carafate 12/21
- continue diet
hypokalemia
- continue BID replacement
Alcohol Withdrawal
- continue thiamine and folic acid
- continue phenobarbital taper
- monitor MSAS
Hypophosphatemia
- replace prn
DVT proph: SCDs
Code: Full
Dispo: Medically stable for dc to SNF. d/w .
Anticipated Discharge: 24 - 48 hours
Subjective/Interval History
-
Date of Service: December 21, 2024
resting comfortably, no complaints at present
Objective Data
-
Labs:
Laboratory Results
12/21/24 12/21/24
06:44 06:45
WBC 4.5 L
Hgb 12.2 L
Hct 35.0 L
Plt Count 149
Sodium 134 L
Potassium 3.6
Chloride 107
Carbon Dioxide 24
BUN 7 L
Creatinine 0.5 L
Glucose 120 H
Calcium 8.4
Vital Signs:
Vital Signs
Temp Pulse Resp BP Pulse Ox
98.7 F 74 18 123/74 97
12/21/24 11:39 12/21/24 11:39 12/21/24 11:39 12/21/24 11:39 12/21/24 11:39
I&O
12/20/24 12/21/24 12/22/24
06:59 06:59 06:59
Intake Total 1440 / 1440 2400 / 2400
Output Total 1350 / 1350 1999
Balance 90 / 90 400 / 400
Physical Exam
-
General: No Apparent Distress
HEENT: Normocephalic and Atraumatic
Respiratory: Negative Wheezes
Cardiac: Regular Rhythm and S1/S2
GI: Soft
Genito-urinary: No Costovertebral Tender
Neuro: AO x 3
Hematologic / Lymphatic: No Lymphadenopathy
Psych: Calm
Data Reviewed
-
Total Time Spent with Patient (in minutes): 42
Labs: Labs Reviewed by me
[2024-12-21] MEDS: TYLENOL 650 MG PO (15:00)
--- NOTE | 2024-12-21 15:00 | CM ---
Spoke with pt in room .
Added additional SNF to care port.
Pt will be living at hotel after dc from SNF.
PLAN Locate SNF
[2024-12-21 16:24] VITALS: BP 134/87
[2024-12-21] MEDS: NEUTRA-PHOS POWDER PACKET 250 MG PO ×2 (17:27→21:10)
[2024-12-21 19:40] VITALS: BP 145/79
[2024-12-21 23:03] VITALS: BP 136/67
[2024-12-22 03:10] VITALS: BP 123/75
[2024-12-22 05:53] VITALS: BMI 29.6
[2024-12-22 07:40] VITALS: BP 125/83
[2024-12-22 08:00] LABS: Hematocrit 35.9 % (39.0-52.0); Hemoglobin 12.4 g/dL (13.0-18.0); Mean Corp Hgb Conc. 34.5 g/dL (33.0-37.0); Mean Corpuscular Volume 96.0 fL (80.0-94.0); Platelet Count 150 10^3/uL (130-400); Red Cell Dist. Width 14.2 % (11.5-14.5)
[2024-12-22] MEDS: VITAMIN B1 100 MG PO ×2 (08:11→19:20)
[2024-12-22] MEDS: LUMINAL 64.8 MG PO ×3 (08:11→21:16)
[2024-12-22] MEDS: FOLVITE 1 MG PO (08:11)
[2024-12-22] MEDS: PROTONIX 40 MG PO ×2 (08:11→19:20)
[2024-12-22] MEDS: CARAFATE SUSPENSION 1 GM PO ×4 (08:11→21:17)
[2024-12-22] MEDS: KCL 20 MEQ PO ×2 (08:11→19:20)
[2024-12-22 08:20] LABS: Blood Urea Nitrogen 7 mg/dl (9-20); Calcium 8.5 mg/dl (8.4-10.2); Carbon Dioxide 27 mmol/L (22-30); Chloride 104 mmol/L (98-107); Estimated Creatinine Clearance 110 ml/min; Glucose 102 mg/dl (70-99); Potassium 3.9 mmol/L (3.5-5.1); Sodium 135 mmol/L (135-145); eGFR > 60.00
[2024-12-22] MEDS: NEUTRA-PHOS POWDER PACKET 250 MG PO ×4 (09:17→21:16)
[2024-12-22] MEDS: TYLENOL 650 MG PO (09:17)
--- NOTE | 2024-12-22 10:56 | W.PN.HOSP.TC ---
Today's Communication/Plan
-
Medically stable for dc to SNF. d/w .
Assessment / Plan
Assessment / Plan
Assessment:
Alcoholic Ketoacidosis
- s/p IVF with improvement
Alcoholic Gastritis/Esophagitis
- continue PPI BID
- continue Carafate
- continue diet
hypokalemia
- continue BID replacement
Alcohol Withdrawal
- continue thiamine and folic acid
- continue phenobarbital taper
- monitor MSAS
Hypophosphatemia
- replace prn
DVT proph: SCDs
Code: Full
Dispo: Medically stable for dc to SNF. d/w .
Anticipated Discharge: 24 - 48 hours
Subjective/Interval History
-
Date of Service: December 22, 2024
no new complaints
Objective Data
-
Labs:
Laboratory Results
12/22/24
06:48
WBC 3.9 L
Hgb 12.4 L
Hct 35.9 L
Plt Count 150
Sodium 135
Potassium 3.9
Chloride 104
Carbon Dioxide 27
BUN 7 L
Creatinine 0.6 L
Glucose 102 H
Calcium 8.5
Vital Signs:
Vital Signs
Temp Pulse Resp BP Pulse Ox
97.7 F 76 18 125/83 100
12/22/24 07:40 12/22/24 07:40 12/22/24 07:40 12/22/24 07:40 12/22/24 07:40
I&O
12/21/24 12/22/24 12/23/24
06:59 06:59 06:59
Intake Total 2400 / 2400 720 / 720
Output Total 2000 / 2000 600 / 600
Balance 400 / 400 120 / 120
Physical Exam
-
General: No Apparent Distress
HEENT: Normocephalic
Respiratory: Clear to Auscultation; Negative Wheezes
Cardiac: Regular Rhythm and S1/S2
GI: Soft and Nontender
Musculoskeletal: No Edema
Neuro: AO x 3
Psych: Calm
Data Reviewed
-
Total Time Spent with Patient (in minutes): 44
Labs: Labs Reviewed by me
[2024-12-22 11:10] VITALS: BP 108/69
[2024-12-22 15:40] VITALS: BP 110/65
--- NOTE | 2024-12-22 16:01 | CM ---
Spoke with attending who stated that patient is medically cleared for discharge. Per Allscriheidi No[facility]. [facility] Spoke with Lynda in admissions, who
confirmed acceptance and stated that # for report [phone] and fax [phone].
Patient stated that he feels he will be ok in a w/c van. He was made aware of aprox cost and he is agreeable.
Attending updated.
Plan: Case management will continue to follow and assist with discharge planning. Naa Moise tomorrow.
[2024-12-22 19:11] VITALS: BP 123/71
[2024-12-22 23:50] VITALS: BP 117/62
[2024-12-23 03:29] VITALS: BP 120/68
[2024-12-23 06:00] VITALS: BMI 29.7
[2024-12-23 07:35] VITALS: BP 120/79
[2024-12-23] MEDS: PROTONIX 40 MG PO (07:44)
[2024-12-23] MEDS: LUMINAL 32.4 MG PO (07:44)
[2024-12-23] MEDS: KCL 20 MEQ PO (07:44)
[2024-12-23] MEDS: NEUTRA-PHOS POWDER PACKET 250 MG PO ×2 (07:44→11:55)
[2024-12-23] MEDS: CARAFATE SUSPENSION 1 GM PO ×2 (07:44→11:55)
[2024-12-23] MEDS: FOLVITE 1 MG PO (07:45)
[2024-12-23] MEDS: VITAMIN B1 100 MG PO (07:45)
[2024-12-23 08:05] LABS: Hematocrit 33.8 % (39.0-52.0); Hemoglobin 11.6 g/dL (13.0-18.0); Mean Corp Hgb Conc. 34.3 g/dL (33.0-37.0); Mean Corpuscular Volume 95.5 fL (80.0-94.0); Platelet Count 140 10^3/uL (130-400); Red Cell Dist. Width 13.9 % (11.5-14.5)
[2024-12-23 08:07] LABS: Blood Urea Nitrogen 10 mg/dl (9-20); Calcium 8.7 mg/dl (8.4-10.2); Carbon Dioxide 24 mmol/L (22-30); Chloride 106 mmol/L (98-107); Estimated Creatinine Clearance 110 ml/min; Glucose 123 mg/dl (70-99); Potassium 3.8 mmol/L (3.5-5.1); Sodium 134 mmol/L (135-145); eGFR > 60.00
[2024-12-23 11:25] VITALS: BP 114/78
--- NOTE | 2024-12-23 11:42 | CM ---
Spoke with attending who stated that patient is medically stable for discharge. Met with patient with RN at bedside and advised patient about bed availability. Patient agreeable to discharge and transfer to rehab. He signed IMM. Attending updated.
Naa sepulveda and Lynda in admissions confirmed bed availability. # For report [phone] and fax [phone]. Patient will go by w/c van. He was made aware of cost and is agreeable.
IMM reviewed, on chart signed.
Plan: Case management will continue to follow and assist with discharge planning. SNF, stable today.
--- NOTE | 2024-12-23 15:05 | W.DS.TRANS ---
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
-
Discharge Instructions:
Discharge Diagnosis/Procedures alcohol withdrawal with alcohol ketoacidosis,
alcohol gastritis
Diet Regular
Activity As tolerated
Instructions:
Stand-Alone Forms:
Changes to Home Medications: No
Discharge Medications:
DC Medications w/original date entered in [employer] [facility]
folic acid 1 mg tablet 1 mg PO DAILY Supplement 01/25/24
therapeutic multivitamin 1 tab PO DAILY Supplement 01/25/24
pantoprazole 40 mg tablet,delayed release 40 mg PO BID #60 tabs 01/29/24
thiamine HCl (vitamin B1) 100 mg tablet 100 mg PO BID #30 tabs 01/29/24
sucralfate 100 mg/mL oral suspension 1 g (10 mL) PO ACHS #1,200 mL 12/23/24
Home Medication Changes
Pending Results: No
Total time spent discharging patient (in min): 42
== END 2024-12-23 13:31 | DRG 897 ==
LOC: 4 EAST ACU 22:48
PROVIDERS: Emergency Medicine; Internal Medicine; Physician Assistant Medical; ADMITTING PHYSICIAN Hospitalist; ATTENDING PHYSICIAN Internal Medicine; EMERGENCY PHYSICIAN Emergency Medicine
DX: F10.139 Alcohol abuse with withdrawal, unspecified (principal); E87.29 Other acidosis; Z59.01 Sheltered homelessness; K76.6 Portal hypertension; K29.20 Alcoholic gastritis without bleeding; E87.6 Hypokalemia; E83.39 Other disorders of phosphorus metabolism; F17.210 Nicotine dependence, cigarettes, uncomplicated; K21.00 Gastro-esophageal reflux disease with esophagitis, without bleeding; K75.9 Inflammatory liver disease, unspecified; M21.379 Foot drop, unspecified foot; F32.A Depression, unspecified; F41.9 Anxiety disorder, unspecified
CPT/HCPCS: 74177; 80048; 80053; 82010; 82805; 82977; 83690; 83735; 84100; 85025; 85027; 85610; 85730; 87070; 93005; 96365; 96375; 97116; 97162; 97166; 99285; Q9967

== ENCOUNTER 2025-02-10 16:35 | Emergency (ER) | payer MEDICARE, OTHER, SELFPAY ==
[2025-02-10] VITALS (8 sets, daily range): BP systolic 105–149; BP diastolic 66–89; BMI 31.7
--- NOTE | 2025-02-10 16:42 | ED.GENMED ---
History of Present Illness
General
Chief Complaint: Alcohol Problem
Time Seen by Provider: 02/10/25 16:42
History of Present Illness
History of Present Illness:
FOCUSED PAST MEDICAL HISTORY
- History of alcoholism; patient states he is homeless but is currently at [facility] related to chronic
REVIEW OF OLD RECORDS
- I reviewed EMS transfer sheet indicating the patient has a history of alcoholism, high blood pressure and takes folic acid
Note:
CHIEF COMPLAINT(S)
The patient was sent here by ambulance from [facility] due to concerns of alcohol intoxication. The patient appears to be an unreliable historian currently.
HISTORY OF PRESENT ILLNESS
The patient is a 74-year-old male who presented after leaving a facility identified as [facility]. He stated, 'I walked out of an institution,' referring to [facility], where he has been reportedly staying due to issues with balance and
equilibrium. The patient described his condition as affecting his balance and stated, 'I cant walk,' and that he requires the use of a walker. He reported undergoing various medical evaluations to understand his symptoms, but the cause remains
undiagnosed despite extensive [place] across the city. Additionally, the patient revealed being homeless, suggesting he is using services and resources due to his living situation, indicating a strategy for support and survival. He expressed
dissatisfaction with his current medical evaluation, questioning the necessity of being in the facility, and was concerned about who was covering the financial cost of his care.
SOCIAL DETERMINANTS AFFECTING HEALTH
The patients circumstances suggest homelessness, as he openly stated, 'Im homeless, Im using the system.' He also mentioned living in a motel room, indicating housing instability and possibly financial constraints affecting his health.
PHYSICAL EXAM
- General: The patient is clearly intoxicated, he is overly verbose and intermittently argumentative, he has been demanding to leave upon arrival
- HEENT: Moist oral mucosa
- Cardiovascular: No murmurs, normal heart rate, regular rhythm, No chest wall tenderness
- Pulmonary: No respiratory distress, breath sounds are clear and equal
- Abdomen: Soft with no peritoneal signs, no tenderness
- Neurologic: Excellent strength in all extremities, slurred speech consistent with reported recent alcohol use
- Psychiatric: Appropriate mental status, normal insight and judgement
- Extremities: Nontender, no edema, moves all extremities equally
- Skin: No rash, no lesions
PLAN
Blood work will be conducted to assess the patient�s current medical status. He will be monitored for a short period to ensure stability. If the results are satisfactory and no new issues arise, the patient may be discharged.
DIFFERENTIAL DIAGNOSIS
The Differential Diagnosis includes, in no particular order and is not limited to:
- Acute alcohol intoxication
- Vestibular dysfunction
- Cerebellar ataxia
- Peripheral neuropathy
- Orthostatic hypotension
- Parkinsons disease
- Transient ischemic attack
- B12 deficiency
- Medication side effects
- Alcohol use disorder
- Psychosomatic disorder
LABS
- White count normal, hemoglobin 11.8, chemistries relatively unremarkable, alcohol 205, MCV high normal
SUMMARY OF ENCOUNTER
The patient, a 74-year-old male, presented to the emergency department with complaints of difficulty with balance and walking. He is notably homeless and experiencing housing instability, having been residing at [facility], a facility he left
prior to this visit. The patient reported previous medical evaluations for his symptoms, but they remain undiagnosed. His examination showed signs of anxiety with repeated requests for discharge. Laboratory tests were planned to assess his health
status, with monitoring for stability as a short-term approach.
DISPOSITION
Discharge
PLAN
The plan includes performing blood work to evaluate the patients current medical status. The patient will be monitored for a short period to ensure stability and may be discharged back to [facility] if lab results and reassessment are
satisfactory without new issues arising.
FOLLOW-UP INSTRUCTIONS
The patient is advised to follow up with his primary care provider or other specialists involved in his care as needed, particularly to further investigate his balance and mobility issues.
MEDICAL DECISION MAKING
Number and Complexity of Problems Addressed: Chronic conditions affecting care include vestibular dysfunction, cerebellar ataxia, peripheral neuropathy, orthostatic hypotension, Parkinsons disease, transient ischemic attack, B12 deficiency,
medication side effects, alcohol use disorder, and psychosomatic disorder.
Data:
- Category 1: Blood work was ordered to assess the patients medical status.
Risk:
Consideration of Admission/Observation: Escalation of care including admission/observation was considered given the complexity and risk of the patients presenting complaint, exam findings, and/or their underlying comorbidities. However, ultimately,
I feel the patient is safe for outpatient management with close follow-up. Reasoning: Work-up reassuring, does not reveal any acute life/organ-threatening processes, patients symptoms well controlled upon reevaluation, reexamination is reassuring,
vitals are stable, patient agreeable with discharge, reliable for follow-up.
Care significantly affected by Social Determinants of Health: The patients homelessness and housing instability are significant factors affecting his health.
DIAGNOSIS
Alcohol intoxication
Alcohol use disorder
UPDATE
- The patient was somewhat argumentative and clearly intoxicated upon arrival. Throughout his stay in the emergency department he became more cooperative and calm down. No clear indication to keep him in the hospital.
Past History
Past History
ED Past Medical History: Other (Foot drop, hernia in his lower abdomen, Fx Leg) and Other (Alcohol abuse)
ED Past Surgical History: Orthopedic (Right lower extremity orthopedic surgical procedure)
Social History
Tobacco: Smoker
Alcohol: Chronic alcoholic (Molt liquir and Vodka, As much as he can get)
Personal:
Living: homeless
Employment: Not employed
Family History
Family History: Other (Noncontributory)
Phy Exam
Physical Exam
Physical Exam:
See HPI
Scores
Withdrawal Assessment of Alcohol
Withdrawal Assessment Completed?: Not applicable
Course
Orders/Labs/Results
Orders:
Orders
02/10/25 16:49
Alcohol Urgent
Complete Blood Count/With Diff Urgent
Comprehensive Metabolic Panel Urgent
Abnormal Lab Results
02/10/25
16:49
RBC 3.63 L 10^6/uL
(4.70-6.10)
Hgb 11.8 L g/dL
(13.0-18.0)
Hct 34.1 L %
(39.0-52.0)
MCH 32.5 H pg
(27.0-31.0)
RDW 11.4 L %
(11.5-14.5)
Sodium 134 L mmol/L
(135-145)
Carbon Dioxide 21 L mmol/L
(22-30)
Creatinine 0.6 L mg/dL
(0.7-1.3)
02/10/25 16:49
02/10/25 16:49
Vital Signs
Initial and Last Documented VS:
Initial Vital Signs
Pulse Resp Pulse Ox
83 17 98
02/10/25 16:41 02/10/25 16:41 02/10/25 16:41
Last Documented Vital Signs
Temp Pulse Resp BP Pulse Ox
36.7 C 76 15 105/66 95
02/10/25 16:47 02/10/25 20:00 02/10/25 20:00 02/10/25 20:00 02/10/25 20:00
*Pulse Oximetry
Patient hypoxic: no
*Critical Care Note
Total Time (30-74mins, 75-104mins- exclusive of procedures): Not Applicable
ED Attending Note
-
Portions of this chart may have been created with voice recognition software.� Occasional wrong word or��sound alike� substitutions may have occurred due to the inherent limitations of voice recognition software.
Discharge Plan
Departure
Patient Disposition: Home (Routine Discharge)
Date of Disposition: 02/10/25
Time of Disposition: 17:54
Patient with high blood pressure during this ER visit?: Yes
Discharge Problem:
Alcohol intoxication
Instructions: Alcohol intoxication - ED (DC), BLOOD PRESSURE
Prescriptions:
No Action
therapeutic multivitamin Tablet
1 tab PO DAILY
folic acid 1 mg Tablet
1 mg PO DAILY
thiamine HCl (vitamin B1) 100 mg Tablet
100 mg PO BID Qty: 30 0RF
pantoprazole 40 mg Tablet,Delayed Release (Dr/Ec)
40 mg PO BID Qty: 60 0RF
sucralfate 100 mg/mL Suspension
1 g PO ACHS Qty: 1200 0RF
Referrals:
NONE,* [Family Provider, Internal Medicine]
Activity Restrictions/Additional Instructions:
No driving today. Your alcohol level was 205. Other basic blood work is relatively unremarkable. Mild anemia is noted with a hemoglobin of 11.8 however this is similar to baseline.
Interventions
Interventions:
*Risk Screen - Suicide Last Done: 02/10/25 16:57
*General Assessment Last Done: 02/10/25 16:57
*Neglect/Abuse Screening Last Done: 02/10/25 16:57
*ED- Fall Risk Assessment Last Done: 02/10/25 16:57
*ED COVID-19 Vaccine History Last Done: 02/10/25 16:57
ED- Neurological Assessment Last Done: 02/10/25 17:01
ED-Psychological Assessment Last Done: 02/10/25 17:01
Discharge Date and Time
Print Language: SRI LANKAN
[2025-02-10 17:01] LABS: Hematocrit 34.1 % (39.0-52.0); Hemoglobin 11.8 g/dL (13.0-18.0); Mean Corp Hgb Conc. 34.6 g/dL (33.0-37.0); Mean Corpuscular Volume 93.9 fL (80.0-94.0); Nucleated Red Blood Cells % 0 % (-); Platelet Count 232 10^3/uL (130-400); Red Cell Dist. Width 11.4 % (11.5-14.5)
[2025-02-10 17:13] LABS: ALT (SGPT) 20 U/L (0-50); AST (SGOT) 23 U/L (17-59); Albumin 4.2 g/dl (3.5-5.0); Alkaline Phosphatase 54 U/L (38-126); Blood Urea Nitrogen 10 mg/dl (9-20); Calcium 8.4 mg/dl (8.4-10.2); Carbon Dioxide 21 mmol/L (22-30); Chloride 104 mmol/L (98-107); Estimated Creatinine Clearance > 125 ml/min; Glucose 91 mg/dl (70-99); Potassium 3.9 mmol/L (3.5-5.1); Sodium 134 mmol/L (135-145); Total Protein 7.1 g/dl (6.3-8.2); eGFR > 60.00
== END 2025-02-10 23:44 | disposition home or self-care (01) ==
LOC: EMR 16:35
PROVIDERS: EMERGENCY PHYSICIAN Emergency Medicine
DX: F10.229 Alcohol dependence with intoxication, unspecified (principal); I10 Essential (primary) hypertension; F17.200 Nicotine dependence, unspecified, uncomplicated; Z59.01 Sheltered homelessness; Y90.7 Blood alcohol level of 200-239 mg/100 ml
CPT/HCPCS: 99283; 80053; 82077; 85025